=== PATIENT | male | born 2005 | race Caucasian/White ===

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

== ENCOUNTER 2024-10-15 15:53 | Emergency (ER) | payer OTHER, SELFPAY ==
--- NOTE | ~2024-10-15 | XR_ITS ---
EXAM: XR abdomen/kub 1V DATE: 10/15/2024 16:23 HISTORY: abdominal pain . COMPARISON: None available. FINDINGS: Clear lung bases. Normal bowel gas pattern. No organomegaly. No abnormal abdominal calcifi cation. Regional bones and soft tissues normal for age. IMPRESSION: Normal abdominal radiograph findings. Reviewed, dictated and finalized at location K.
--- NOTE | 2024-10-15 15:55 | ED.NAVMDI ---
HPI - Nausea/Vomiting/Diarrhea General Chief complaint: Nausea/Vomiting/Diarrhea Stated complaint: GI issues Time Seen by Provider: 10/15/24 15:54 Source: patient Mode of arrival: ambulatory Limitations: no limitations History of Present Illness HPI Narrative: Patient is a 19-year-old male who presents with 6 weeks of lower abdominal pain radiating up left side, diarrhea with intermittent constipation (diarrhea for 2-4 days in a row and then constipation for 2 weeks). Patient also having intermittent nausea and dry heaving, but has never vomited. Patient states when he tries to eat he feels like he is going to throw up and becomes full quickly. Reports his stomach always feels empty. Patient did have a grilled chicken sandwich for lunch today. Had bowel movement yesterday but states it was hard to go but not hard in consistency. Reports he is only able to go to pass stool in the morning. Stool has been green and once a dark brown but not tarry. Patient has been taking Pepto, Dulcolax, probiotics. Denies any blood in stool or vomit. Denies any fever, chills, upper respiratory infection symptoms. Does states at the start of symptoms he had a course of vomiting and flu like symptoms while in [place]. Reports eating less, increased fluids. Denies feeling bloated but states he has gained weight. Related Data Allergies Allergy/AdvReac Type Severity Reaction Status Date / Time No Known Allergies Allergy Verified 10/15/24 16:06 Review of Systems Review of Systems: All systems reviewed & are unremarkable except as noted in HPI and below Constitutional: Constitutional: Denies body ache(s), Denies chills, Denies fatigue, Denies fever(s), Denies headache(s), Denies malaise and Denies weakness Eyes: Eyes: Denies blurry vision, Denies irritation and Denies loss of vision ENT: Denies otalgia, Denies headache(s), Denies nasal discharge, Denies sinus pain and Denies sore throat Cardiovascular: Cardiovascular: Denies chest pain, Denies irregular heart rhythm and Denies dyspnea Respiratory: Respiratory: Denies dyspnea Gastrointestinal: Gastrointestinal: Reports abdominal pain, Denies melena, Denies hematochezia, Reports diarrhea, Reports nausea and Denies vomiting Musculoskeletal: Musculoskeletal: Denies back pain, Denies myalgias and Denies arthralgias Integumentary/Breasts: Skin/Breast: Denies pruritus and Denies rash Neurologic: Denies headache(s), Denies loss of vision and Denies weakness Psychiatric: Psychiatric: Reports no additional psychiatric complaints Endocrine: Endocrine: Denies fatigue PMFSH Past Medical History Medical History Medial epicondylitis of right elbow Left shoulder pain BMI 25.0-25.9,adult Overweight (BMI 25.0-29.9) Left lateral knee pain Left knee pain Constipation Abdominal pain Acute conjunctivitis of right eye BMI 26.0-26.9,adult Mild acne Mild intermittent asthma in adult without complication Attention deficit hyperactivity disorder (ADHD), combined type, moderate ADHD Asthma Family History Family History Father Neuropathy Father GERD (gastroesophageal reflux disease) Grandparent Hyperlipidemia Neuropathy Grandparent Hyperlipidemia Arthritis Grandparent Hyperlipidemia Hypertension Diabetes mellitus Neuropathy Grandparent Diabetes mellitus Hyperlipidemia Sibling Asthma ADD (attention deficit disorder) Social History Social History Smoking status: Never smoker Alcohol intake: never Substance use: never Substance use type: does not use Comments At time of signature, agree with nursing past medical, surgical, social and family history. There is no relevant family history pertinent to the presenting complaint. Exam Const: General: cooperative, healthy appearing, comfortable, no acute distress and well nourished Nutritional Appearance: well nourished Orientation/consciousness: patient oriented x3 Limitations: no limitations HENMT: Head: normal to inspection, normocephalic and atraumatic Ears: hearing grossly normal bilaterally and external ears normal Face/Nose/Sinus: Normal external nose present, normal facial exam and face symmetric Face and sinus: normal facial exam and face symmetric Mouth: Yes lip normal Eyes: General: appearance normal, both eyes and all related structures Alignment and Position: alignment normal and position normal Periorbital: periorbital findings normal Eyelids: eyelids normal Pupils: Equal, round and reactive pupils present EOM: EOMs intact bilaterally Neck: Neck: normal visual inspection, full ROM and supple Chest: Chest palpation & inspection: normal inspection of the chest Resp: Effort & Inspection: normal respiratory effort and able to speak in complete sentences Auscultation: clear to auscultation bilaterally Cardio: Rate: regular rate Rhythm: regular rhythm Heart sounds: S1 normal heart sound present and S2 normal heart sound present GI: Inspection: normal to inspection GI Palp: Yes abdominal tenderness (LLQ), Yes Soft to palpation and No Guarding due to palpation present (GI) Skin: General skin exam: normal color and no rashes or lesions noted Neuro: General: patient oriented x3 and moves all extremities Cranial nerves: Yes Equal, round and reactive pupils present Speech: normal speech Gait exam (Neuro): Normal gait present Extrem: General: normal to inspection, full ROM and no edema Psych: Appearance: grossly normal and well kempt Mental Status: mental status grossly normal Speech and movement: Normal speech and movement present Affect: normal affect Attitude: cooperative Thought process: Normal thought process present Course Course Emergency Course: Patient is aware of diagnosis, understands and agrees to treatment plan. Anticipatory guidance given. Patient agrees to follow-up as directed and is aware of reasons to seek care at the emergency department. Portions of this record may have been created with voice recognition software Level of Care: Express Care Visit Vital Signs Vital signs: Reviewed MDM - Nausea/Vomiting/Diarrhea MDM Narrative Medical decision making narrative: Discussed importance of following up with PCP for further lab work and imaging. Informed patient if there is any worsening of symptoms to go to the ER. Pt well hydrated appearing, in no respiratory distress, hemodynamically stable. Recommend supportive care. The patient is stable at time of discharge the clinical impression was discussed and the patient was given the opportunity to ask questions, which were addressed as completely as possible given the information available at present. Anticipatory guidance and return to care precautions were discussed and the importance of primary care follow-up was stressed and encouraged. The patient voiced understanding of the plan, indications to return, and the need for follow-up. Exam findings show no acute concerns or changes Patient is appropriate for outpatient treatment and follow-up. Differential Diagnosis Differential diagnosis: Likely traveler's diarrhea, food poisoning, gastroenteritis, clostridium difficile infection, drug-induced nausea and vomiting, dehydration and other (Crohn's disease, ulcerative colitis, diverticulitis) Medical Records Attestation: I reviewed the patient's medical records. Imaging Data Radiologist's impression: EXAM: XR abdomen/kub 1V DATE: 10/15/2024 16:23 HISTORY: abdominal pain . COMPARISON: None available. FINDINGS: Clear lung bases. Normal bowel gas pattern. No organomegaly. No abnormal abdominal calcification. Regional bones and soft tissues normal for age. IMPRESSION: Normal abdominal radiograph findings. Discharge Plan Discharge Clinical Impression: Abdominal pain Qualifiers: Abdominal location: left lower quadrant Qualified Code(s): R10.32 - Left lower quadrant pain Patient Disposition: Home, Self-Care Condition: Stable Instructions: Abdominal Pain (ED) Additional Instructions: Take Zofran as needed for nausea. Take Bentyl for abdominal cramping. Continue with small frequent meals and increase hydration. Follow-up with your PCP for basic labs and to schedule outpatient imaging. Please go to the emergency department immediately should you feel worse in any way or have any of the following symptoms: increasing or different abdominal pain, persistent vomiting, fevers or shaking chills, or prolonged constipation. Patient Language: Bengali Prescriptions: New dicyclomine 20 mg tablet 20 mg PO QID 7 Days Qty: 28 0RF ondansetron 4 mg tablet,disintegrating 4 mg PO Q6-8H PRN (Reason: nausea and vomiting) Qty: 7 0RF Follow-up/Referrals: Ede Leahy MD [Primary Care Provider] - 3 Days Stand Alone Forms: Work/School Release IP Time of Disposition: 16:49
[2024-10-15 16:02] VITALS: BP 133/78; PULSE 71; RESP 18; TEMP 36.6; O2SAT 100
--- OUTSIDE RECORDS SUMMARY | 2024-10-15 18:13 | XMS_ITS | Continuity of Care Document ---
Author Name [facility] Organization [facility] Care Team Providers Care Customer Resource Specialist Name Role Phone [facility] Unavailable Unavailable Immunizations Combined list of available immunizations from the Department of Defense and Veterans Affairs facilities. Immunization Series Date Given Administered By Site Reaction Lot Number CVX Code Drug Press Operator Meat Status Comments Source meningococcal oligosacchari de (MCV4O) 2020 zzLef t Arm [id number] 136 GlaxoSmithKli ne complet ed meningoco ccal oligosacc haride (MCV4O) 02/19/21 Given Ambulat ory Pharmac y Human Papillomaviru s 9-valent vaccine 2020 zzLef t Arm [id number] 165 [employer] complet ed Human Papilloma virus 9-valent vaccine 02/19/21 Given Ambulat ory Pharmac y Human Papillomaviru s 9-valent vaccine 2018 zzLef t Arm [id number] 165 [employer] complet ed Human Papilloma virus 9-valent vaccine 04/13/19 Given Ambulat ory Pharmac y Human Papillomaviru s 9-valent vaccine 2018 zzRig ht Arm [id number] 165 [employer] complet ed Human Papilloma virus 9-valent vaccine 07/27/18 Given Ambulat ory Pharmac y influenza, injectable, quadrivalent- pf 2018 zzLef t Arm [id number] 150 GlaxoSmithK[employer] complet ed influenza , injectabl e, quadrival ent-pf 07/27/18 Given Ambulat ory Pharmac y influenza, injectable, quadrivalent- pf 2016 zzLef t Arm [id number] 150 GlaxoSmith[employer] complet ed influenza , injectabl e, quadrival ent-pf 05/28/17 Given Ambulat ory Pharmac y influenza, injectable, quadrivalent 2015 zzLef t Arm [id number] 158 [employer] complet ed influenza , injectabl e, quadrival ent 04/27/16 Given Ambulat ory Pharmac y influenza, injectable, quadrivalent 2013 zzLef t Arm [id number] 158 [employer] complet ed influenza , injectabl e, quadrival ent 06/11/14 Given Ambulat ory Pharmac y tetanus, diphtheria, acellular pertu is 2013 zzRig ht Arm [id number] 115 Gl[employer]oSmith[employer] complet ed tetanus, diphtheri a, acellular pertussis 06/11/14 Given Ambulat ory Pharmac y meningococcal A,C,Y,W-135 (MCV4P) 2013 zzLef t Arm [id number] 114 sanofi pasteur complet ed meningoco ccal A,C,Y,W-1 35 (MCV4P) 06/11/14 Given Ambulat ory Pharmac y influenza, seasonal, injectable-pf 2011 zzLef t Arm [id number] 140 sanofi pasteur complet ed influenza , seasonal, injectabl e-pf 04/28/12 Given Ambulat ory Pharmac y influenza, seasonal, injectable 2010 zzLef t Arm [id number] 141 sanofi pasteur complet ed influenza , seasonal, injectabl e 05/10/11 Given Ambulat ory Pharmac y influenza virus vaccine,split 2009 zzLef t Arm [id number] 15 sanofi pasteur complet ed influenza virus vaccine,s plit 07/21/10 Given Ambulat ory Pharmac y Novel influenza-H1N 1-09,pf,injec table 2008 126 complet ed Novel influenza -A7R6-09, pf,inject able 06/12/09 Given Ambulat ory Pharmac y DTaP-poliovir us vaccine, inactivated 2008 zzLef t Thigh [id number] 130 GlaxoSmithK[employer] complet ed DTaP-cordelia ovirus vaccine, inactivat ed 01/14/09 Given Ambulat ory Pharmac y varicella virus vaccine 2008 zzLef t Thigh [id number] 21 [employer] complet ed varicella virus vaccine 01/14/09 Given Ambulat ory Pharmac y measles/mumps /rubella virus vaccine 2008 zzRig ht Thigh [id number] 03 [employer] complet ed measles/m umps/rube lla virus vaccine 01/14/09 Given Ambulat ory Pharmac y Hep A, pediatric, unspecified formul 2006 Nilay patino Thigh [id number] 31 [employer] complet ed Hep A, pediatric , unspecifi ed formul 03/03/07 Given Ambulat ory Pharmac y Hep A, pediatric, unspecified formul 2005 zCara wood Thigh [id number] 31 Gl[employer]oSmith[employer] complet ed Hep A, pediatric , unspecifi ed formul 04/15/06 Given Ambulat ory Pharmac y pneumococcal 7-valent vaccine 2004 zLeonora Thigh [id number] 100 [employer] complet ed pneumococ srini 7-valent vaccine 11/18/04 Given Ambulat ory Pharmac y DTaP 2004 zCara wood Thigh [id number] 20 Gl[employer]oSmithK[employer] complet ed DTaP 11/18/04 Given Ambulat ory Pharmac y haemophilus b conj (PRP-OMP) vaccine 2003 zHeydi t Thigh [id number] 49 [employer] complet ed haemophil us b conj (PRP-OMP) vaccine 04/29/04 Given Ambulat ory Pharmac y pneumococcal 7-valent vaccine 2003 zLeonora Thigh [id number] 100 [employer] complet ed pneumococ srini 7-valent vaccine 04/29/04 Given Ambulat ory Pharmac y tuberculin purified protein derivative 2003 zHeydi t Arm [id number] 96 sanofi pasteur complet ed Patient Tolerance : Negative Ambulat ory Pharmac y measles/mumps /rubella virus vaccine 2003 Nilay Thigh [id number] 03 [employer] complet ed measles/m umps/rube lla virus vaccine 04/29/04 Given Ambulat ory Pharmac y varicella virus vaccine 2003 zHeydiflor wood Thigh [id number] 21 [employer] complet ed varicella virus vaccine 04/29/04 Given Ambulat ory Pharmac y pneumococcal 7-valent vaccine 2003 Nilay Thigh [id number] 100 [employer] complet ed pneumococ srini 7-valent vaccine 03 Given Ambulat ory Pharmac y DTaP-hepatiti s B and poliovirus vaccine 2003 zCara t Thigh [id number] 110 GlaxoSmithKli [employer] complet ed DTaP-hepa titis B and polioviru s vaccine 03 Given Ambulat ory Pharmac y haemophilus b conj (PRP-OMP) vaccine 2003 zzLef t Thigh [id number] 49 [employer] complet ed haemophil us b conj (PRP-OMP) vaccine 03 Given Ambulat ory Pharmac y DTaP-hepatiti s B and poliovirus vaccine 2003 zzLef t Thigh [id number] 110 GlaxoSmithK[employer] complet ed DTaP-hepa titis B and polioviru s vaccine 03 Given Ambulat ory Pharmac y haemophilus b conj (PRP-OMP) vaccine 2002 zzRig ht Thigh [id number] 49 [employer] complet ed haemophil us b conj (PRP-OMP) vaccine 03 Given Ambulat ory Pharmac y pneumococcal 7-valent vaccine 2002 zzRig ht Thigh [id number] 100 [employer] complet ed pneumococ srini 7-valent vaccine 03 Given Ambulat ory Pharmac y DTaP-hepatiti s B and poliovirus vaccine 2002 zzLef t Thigh [id number] 110 GlaxoSmithKli ne complet ed DTaP-hepa titis B and polioviru s vaccine 03 Given Ambulat ory Pharmac y hepatitis B pediatric/ado lescent 2002 Transcr ibed 08 Unknown complet ed hepatitis B pediatric /adolesce nt 03 Given Ambulat ory Pharmac y Procedures Combined list of: 1) Procedures from Department of Veterans Affairs facilities going back up to thelast 18 months, not all [place] non-surgical procedures are included; 2) All procedures from the Department of Defense facilities. Procedure Procedure Type Code Date Perfomer Comments Sourc e No data available for this section Ambulatory P harmacy Assessment and Plan Combined list of future care activities from Department of Defense and Veterans Affairs facilities (e.g., assessment and plan notes, appointments, orders, and referrals). Additional future care activities may be listed in the Plan of Care section. Result Assessment and Plan Date Source Assessment and Plan No data available for this section 10/15/2024 Ambulatory Pharmacy Functional Status Combined list of recent functional and cognitive assessments recorded at Department of Defense and [place] Affairs [place] Functional [place] Measurement (FIM) Scale: 1 = Total Assistance (Subject = 0% +), 2 = Maximal Assistance (Subject = 25% +), 3 = Moderate Assistance (Subject = 50% +), 4 = Minimal Assistance (Subject = 75% +), 5 = Supervision, 6 = Modified [place] (Device), 7 = Complete [place] (Timely, Safely). Assessment Date/Time Source Assessment Type Assessment Skill Assessment Score Assessment Details No data available for this section
--- OUTSIDE RECORDS SUMMARY | 2024-10-15 18:13 | XMS_ITS | Clinical Summary ---
Author Organization [facility] Address [address] [place] [address] Care Team Providers Care Glassware Verifier Name Role Phone Zac Montalvo MD Primary Care Provider Unavailab le Source Comments [facility],non-owned Affiliates and Associated Physician Practices is amultiple site organization consisting of ambulatory clinics and hospital sitesin [place], [place], [place] and [place]. This disclosure is being madepursuant to the Care Everywhere program and may not contain all information available regarding this patient. Last updated 18.[facility] [employer] Allergies No known active allergies Medications * Be aware that medications may not be up to date on this document. Alwaysverify current medications with the patient. Medication Sig Dispensed Refills Start Date End Date Status guanFACINE (TENEX) 1 MG tablet Take 1.5 mg by mouth once daily Active guanFACINE (TENEX) 1 MG tablet Take 1 mg by mouth every afternoon Active Active Problems Problem Noted Date Diagnosed Date Right wrist injury 02/03/2016 Social History Tobacco Use Types Packs/Day Years Used Date Smoking Tobacco: Never Alcohol Use Standard Drinks/Week Comments No 0 (1 standard drink = 0.6 oz pur e alcohol) Sex and Gender Information Value Date Recorded Sex Assigned at Not on file Gender Identity Not on file Sexual Orientation Not on file Last Filed Vital Signs Vital Sign Reading Time Taken Comments Blood Pressure - - Pulse - - Temperature - - Respiratory Rate - - Oxygen Saturation - - Inhaled Oxygen Concentration - - Weight 50.5 kg (111 lb 5.3 oz) 02/03/2016 1:21 P M CDT Height 158.1 cm (5' 2.24 ) 02/03/2016 1:21 PM CD T Body Mass Index 20.2 02/03/2016 1:21 PM CDT Plan of Treatment Health Maintenance Due Date Last Done Comments HIV SCREENING 2018 HPV VACCINE (1 - Male 3-dose series) 2018 MENINGOCOCCAL (Group B) VACC INE SHARED DECISION-MAKING (1 of 2 - Standard) 2019 HEPATITIS C SCREENING 04/24/2021 DTAP/TDAP/TD VACCINES (1 - Tdap) 2022 HEPATITIS B VACCINE (1 of 3 - 19+ 3-dose series) 2022 COVID-19 VACCINE (1 - 2023-2 5 season) 2024 INFLUENZA VACCINE (#1) 2024 DEPRESSION SCREENING 07/25/2024 ZOSTER VACCINE (1 of 2) 2053 HIB VACCINE Aged Out No longer eligi ble based on patient's age to complete this topic MENINGOCOCCAL GROUPS A/C/Y/W VACCINE Aged Out No longer eligible b ased on patient's age to complete this topic PNEUMOCOCCAL VACCINE Aged Out No long er eligible based on patient's age to complete this topic Care Teams Glassware Verifier Relationship Specialty Start Date End Date Zac Montalvo MD PCP - General 03/22/11
--- OUTSIDE RECORDS SUMMARY | 2024-10-15 18:13 | XMS_ITS | Clinical Summary ---
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 Gender Identity Not on file Sexual Orientation Not on file Plan of Treatment Health Maintenance Due Date Last Done Comments Hepatitis C Virus (HCV) Screening 2003 TdaP Immunization 2003 Human Papillomavirus (HPV) Immunization (1 - Male 3-dose series) 2018 Meningococcal B Immunization (1 of 2 - Standard) 2019 Hepatitis B Immunization (1 of 3 - 19+ 3-dose series) 2022 Influenza Immunization (#1) 03/25/202404/24, 07/07/2019 SARS-COV-2 Immunization ( - season) 2024 Respiratory Syncytial Virus (RSV) Immunization (Adult) (1 - 1-dose 75+ series) 2078 Meningococcal Immunization (ACWY) Aged Out No longer eligible b ased on patient's age to complete this topic Pneumococcal Immunization Combined Aged Out No longer eligible b ased on patient's age to complete this topic Rotavirus Immunization Aged Out No lo nger eligible based on patient's age to complete this topic
--- OUTSIDE RECORDS SUMMARY | 2024-10-15 18:13 | XMS_ITS | Clinical Summary ---
Author Organization [facility] Address [address] [place] [address] Care Team Providers Care Veneer Stapler Name Role Phone Unavailable Primary Care Provider Unavailabl e Social History Tobacco Use Types Packs/Day Years Used Date Smoking Tobacco: Never Assessed Sex and Gender Information Value Date Recorded Sex Assigned at Not on file Legal Sex Male 5:48 PM CDT Gender Identity Not on file Sexual Orientation Not on file Plan of Treatment Health Maintenance Due Date Last Done Comments Annual Physical 2006 HPV Vaccines (1 - Male 3-dos e series) 2018 Meningococcal B Vaccine (1 o f 2 - Standard) 2019 Hepatitis C 2021 DTaP, Tdap and Td Vaccines ( 1 - Tdap) 2022 Hepatitis B Vaccines (1 of 3 - 19+ 3-dose series) 2022 COVID-19 Vaccine (1 - 2023-2 5 season) 2024 Influenza Adult (#1) 2024 Meningococcal Vaccine Aged Out No adalid dariana eligible based on patient's age to complete this topic Pneumococcal Vaccine: Pediat rics (0 to 5 Years) and At-Risk Patients (6 to 64 Years) Aged Out No longer eligible b ased on patient's age to complete this topic RSV Immunizations Under 20 Months Aged Out No longer eligible based on patient's age to complete this topic
--- OUTSIDE RECORDS SUMMARY | 2024-10-15 18:19 | XMS_ITS | Continuity of Care Document ---
Author Name [facility] Organization [facility] Care Team Providers Care Impact Retail Service Merchandiser Name Role Phone [facility] Unavailable Unavailable Immunizations Combined list of available immunizations from the Department of Defense and Veterans Affairs facilities. Immunization Series Date Given Administered By Site Reaction Lot Number CVX Code Drug Laboratory Tech Status Comments Source meningococcal oligosacchari de (MCV4O) 2020 zzLef t Arm [id number] 136 GlaxoSmithKli ne complet ed meningoco ccal oligosacc haride (MCV4O) 02/19/21 Given Ambulat ory Pharmac y Human Papillomaviru s 9-valent vaccine 2020 zzLef t Arm [id number] 165 Merck & Company Inc complet ed Human Papilloma virus 9-valent vaccine 02/19/21 Given Ambulat ory Pharmac y Human Papillomaviru s 9-valent vaccine 2018 zzLef t Arm [id number] 165 Merck [employer] Company Inc complet ed Human Papilloma virus 9-valent vaccine 04/13/19 Given Ambulat ory Pharmac y Human Papillomaviru s 9-valent vaccine 2018 zzRig ht Arm [id number] 165 Merck & Company Inc complet ed [...] meningococcal A,C,Y,W-135 (MCV4P) 2013 zzLef t Arm [id number] 114 sanofi pasteur complet ed meningoco ccal A,C,Y,W-1 35 (MCV4P) 06/11/14 Given Ambulat ory Pharmac y influenza, seasonal, injectable-pf 2011 zzLef t Arm [id number] 140 sanofi pasteur complet ed influenza , seasonal, injectabl e-pf 04/28/12 Given Ambulat ory Pharmac y influenza, seasonal, injectable 2010 zzLef t Arm [id number] 141 sanofi pasteur complet ed influenza , seasonal, injectabl e 05/10/11 Given Ambulat ory Pharmac y influenza virus vaccine,split 2009 zzLef t Arm [id number] 15 sanofi pasteur complet ed influenza virus vaccine,s plit 07/21/10 Given Ambulat ory Pharmac y Novel influenza-H1N 1-09,pf,injec table 2008 126 complet ed Novel influenza -I1P3-61, pf,inject able 06/12/09 Given Ambulat ory Pharmac y DTaP-poliovir us vaccine, inactivated 2008 zzLef t Thigh [id number] 130 GlaxoSmithKli ne complet ed DTaP-cordelia [...] y pneumococcal 7-valent vaccine 2004 zLeonora Thigh [id number] 100 [employer] [facility] complet ed pneumococ srini 7-valent vaccine 11/18/04 Given Ambulat ory Pharmac y DTaP 2004 zCara wood Thigh [id number] 20 GlaxoSmithKli ne complet ed DTaP 11/18/04 Given Ambulat ory Pharmac y haemophilus b conj (PRP-OMP) vaccine 2003 zHeydi t Thigh [id number] 49 Merck & Company Inc complet ed haemophil us b conj (PRP-OMP) vaccine 04/29/04 Given Ambulat ory Pharmac y pneumococcal 7-valent vaccine 2003 zLeonora Thigh [id number] 100 [employer] complet ed pneumococ srini 7-valent vaccine 04/29/04 Given Ambulat ory Pharmac y tuberculin purified protein derivative 2003 zHeydi t Arm [id number] 96 sanofi pasteur complet ed Patient Tolerance [...] 7-valent vaccine 2003 Nilay Thigh [phone] [employer] complet ed pneumococ srini 7-valent vaccine 03 Given Ambulat ory Pharmac y DTaP-hepatiti s B and poliovirus vaccine 2003 zCara t Thigh [id number] 110 GlaxoSmithKli ne complet ed DTaP-hepa titis B and polioviru s vaccine 03 Given Ambulat ory Pharmac y haemophilus b conj (PRP-OMP) vaccine 2003 zzLef t Thigh [id number] 49 Merck & Company Inc complet ed haemophil us b conj (PRP-OMP) vaccine 03 Given Ambulat ory Pharmac y DTaP-hepatiti s B and poliovirus vaccine 2003 zzLef t Thigh [id number] 110 GlaxoSmithKli ne complet ed DTaP-hepa titis B and polioviru s vaccine 03 Given Ambulat ory Pharmac y haemophilus b conj (PRP-OMP) vaccine 2002 zzRig ht Thigh [id number] 49 Merck & Company Inc complet ed haemophil us b conj (PRP-OMP) vaccine 03 Given Ambulat ory Pharmac y pneumococcal 7-valent vaccine 2002 zzRig ht Thigh [phone] [employer] complet ed pneumococ srini 7-valent vaccine 03 Given Ambulat ory Pharmac y DTaP-hepatiti s B and poliovirus vaccine 2002 zzLef t Thigh [id number] 110 GlaxoSmithKli ne complet ed DTaP-hepa titis B and polioviru s vaccine 03 Given Ambulat ory Pharmac y hepatitis B pediatric/ado lescent 2002 Transcr ibed 08 Unknown complet ed hepatitis B pediatric /adolesce nt 03 Given Ambulat ory Pharmac y Procedures Combined list of: 1) Procedures from Department of Veterans Affairs facilities going back up to thelast 18 months, not all [place] non-surgical procedures are included; 2) All procedures [...] at Department of Defense and [facility] Affairs ([place]VA Functional [place] Measurement (FIM) Scale: 1 = Total Assistance (Subject = 0% +), 2 = Maximal Assistance (Subject = 25% +), 3 = Moderate Assistance (Subject = 50% +), 4 = Minimal Assistance (Subject = 75% +), 5 = Supervision, 6 = Modified [place] (Device), 7 = Complete [place] (Timely, Safely). Assessment Date/Time Source Assessment Type Assessment Skill Assessment Score Assessment Details No data available for this section
== END 2024-10-15 16:52 | disposition home or self-care (01) ==
PROVIDERS: Emergency Provider Nurse Practitioner Family; PCP Family Medicine
DX: R10.32 Left lower quadrant pain (principal); J45.909 Unspecified asthma, uncomplicated
CPT/HCPCS: 74018; 99213; G0463

== ENCOUNTER 2024-10-15 22:28 | Emergency (ER) | payer OTHER, SELFPAY ==
--- NOTE | ~2024-10-15 | CT_ITS ---
EXAMINATION: CT abdomen pelvis w con DATE: 10/16/2024 01:02 INDICATION: Low abdominal pain. TECHNIQUE: Computed tomography (CT) of the abdomen and pelvis was performed with 100 mL Omnipaque 350 intravenous contrast. Automated exposure control and iterative reconstruction technique were employe d. The dose-length product was 622.22 mGy-cm. COMPARISON: None. FINDINGS: The visualized portions of the lung bases are clear without pneumonia or pleural effusion. The heart size is normal. No pericardial effusion. The liver is normal. The gallbladder is contracted . Calcifications in the spleen are consistent with old granulomatous disease. The pancreas, adrenal g lands, and kidneys are normal. There are no dilated loops of bowel. There is wall thickening of the d escending and sigmoid colon. The appendix is normal. There are no pathologically enlarged lymph nodes . There is no free intraperitoneal fluid. There is mild lumbar spondylosis. IMPRESSION: 1. Wall thickening of the descending and sigmoid colon, which may be secondary to nondistention or co litis. Reviewed, dictated and finalized at location A. IMPRESSION: 1. Wall thickening of the descending and sigmoid colon, which may be secondary to nondistention or colitis.
[2024-10-15 22:29] VITALS: BP 150/93; PULSE 102; RESP 16; TEMP 36.6; O2SAT 100
--- OUTSIDE RECORDS SUMMARY | 2024-10-15 22:30 | XMS_ITS | Clinical Summary ---
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
--- OUTSIDE RECORDS SUMMARY | 2024-10-15 22:30 | XMS_ITS | Continuity of Care Document ---
Author Name [facility] Organization [facility] Care Team Providers Care Oracle Etl Developer Name Role Phone [facility] Unavailable Unavailable Immunizations Combined list of available immunizations from the Department of Defense and Veterans Affairs facilities. Immunization Series Date Given Administered By Site Reaction Lot Number CVX Code Drug Angle Shear Set Up Operator Status Comments Source meningococcal oligosacchari de (MCV4O) 2020 zzLef t Arm [id number] 136 GlaxoSmithKli ne complet ed meningoco ccal oligosacc haride (MCV4O) 02/19/21 Given Ambulat ory Pharmac y Human Papillomaviru s 9-valent vaccine 2020 zzLef t Arm [id number] 165 Merck & Company Inc complet ed Human Papilloma virus 9-valent vaccine 02/19/21 Given Ambulat ory Pharmac y Human Papillomaviru s 9-valent vaccine 2018 zzLef t Arm [id number] 165 Merck & Company Inc complet ed Human Papilloma virus 9-valent vaccine 04/13/19 Given Ambulat ory Pharmac y Human Papillomaviru s 9-valent vaccine 2018 zzRig ht Arm [id number] 165 Merck & Company Inc complet ed [...] meningococcal A,C,Y,W-135 (MCV4P) 2013 zzLef t Arm [id number] 114 sanofi pasteur complet ed meningoco ccal A,C,Y,W-1 35 (MCV4P) 06/11/14 Given Ambulat ory Pharmac y influenza, seasonal, injectable-pf 2011 zzLef t Arm [id number] 140 sanofi pasteur complet ed influenza , seasonal, injectabl e-pf 04/28/12 Given Ambulat ory Pharmac y influenza, seasonal, injectable 2010 zzLef t Arm [id number] 141 sanofi pasteur complet ed influenza , seasonal, injectabl e 05/10/11 Given Ambulat ory Pharmac y influenza virus vaccine,split 2009 zzLef t Arm [id number] 15 sanofi pasteur complet ed influenza virus vaccine,s plit 07/21/10 Given Ambulat ory Pharmac y Novel influenza-H1N 1-09,pf,injec table 2008 126 complet ed Novel influenza -F3E4-29, pf,inject able 06/12/09 Given Ambulat ory Pharmac y DTaP-poliovir us vaccine, inactivated 2008 zzLef t Thigh [id number] 130 GlaxoSmithKli ne complet ed DTaP-cordelia [...] y pneumococcal 7-valent vaccine 2004 zLeonora Thigh [id number] 100 [facility] complet ed pneumococ srini 7-valent vaccine 11/18/04 Given Ambulat ory Pharmac y DTaP 2004 zCara wood Thigh [id number] 0BA 20 GlaxoSmithKli ne complet ed DTaP 11/18/04 Given Ambulat ory Pharmac y haemophilus b conj (PRP-OMP) vaccine 2003 zHeydi t Thigh [id number] 49 Merck & Company Inc complet ed haemophil us b conj (PRP-OMP) vaccine 04/29/04 Given Ambulat ory Pharmac y pneumococcal 7-valent vaccine 2003 zLeonora Thigh [id number] 100 [facility] complet ed pneumococ srini 7-valent vaccine 04/29/04 Given Ambulat ory Pharmac y tuberculin purified protein derivative 2003 zHeydi t Arm [id number] 96 sanofi pasteur complet ed Patient Tolerance [...] 7-valent vaccine 2003 Nilay Thigh [phone] [facility] complet ed pneumococ srini 7-valent vaccine 03 Given Ambulat ory Pharmac y DTaP-hepatiti s B and poliovirus vaccine 2003 zCara t Thigh [id number] 110 GlaxoSmithKli ne complet ed DTaP-hepa titis B and polioviru s vaccine 03 Given Ambulat ory Pharmac y haemophilus b conj (PRP-OMP) vaccine 2003 zzLef t Thigh [id number] 49 Merck & Company Inc complet ed haemophil us b conj (PRP-OMP) vaccine 03 Given Ambulat ory Pharmac y DTaP-hepatiti s B and poliovirus vaccine 2003 zzLef t Thigh [id number] 110 GlaxoSmithKli ne complet ed DTaP-hepa titis B and polioviru s vaccine 03 Given Ambulat ory Pharmac y haemophilus b conj (PRP-OMP) vaccine 2002 zzRig ht Thigh [id number] 49 Merck & Company Inc complet ed haemophil us b conj (PRP-OMP) vaccine 03 Given Ambulat ory Pharmac y pneumococcal 7-valent vaccine 2002 zzRig ht Thigh [phone] [employer] complet ed pneumococ srini 7-valent vaccine 03 Given Ambulat ory Pharmac y DTaP-hepatiti s B and poliovirus vaccine 2002 zzLef t Thigh [id number] 110 GlaxoSmithKli ne complet ed DTaP-hepa titis B and polioviru s vaccine 03 Given Ambulat ory Pharmac y hepatitis B pediatric/ado lescent 2002 Transcr ibed 08 Unknown complet ed hepatitis B pediatric /adolesce nt 03 Given Ambulat ory Pharmac y Procedures Combined list of: 1) Procedures from Department of Veterans Affairs facilities going back up to thelast 18 months, not all [place] non-surgical procedures are included; 2) All procedures [...] Plan No data available for this section 10/16/2024 Ambulatory Pharmacy Functional Status Combined list of recent functional and cognitive assessments recorded at Department of Defense and [facility] Affairs ([place]VA Functional [place] Measurement (FIM) Scale: 1 = Total Assistance (Subject = 0% +), 2 = Maximal Assistance (Subject = 25% +), 3 = Moderate Assistance (Subject = 50% +), 4 = Minimal Assistance (Subject = 75% +), 5 = Supervision, 6 = Modified [place] (Device), 7 = Complete [place] (Timely, Safely). Assessment Date/Time Source Assessment Type Assessment Skill Assessment Score Assessment Details No data available for this section
--- OUTSIDE RECORDS SUMMARY | 2024-10-15 22:30 | XMS_ITS | Clinical Summary ---
Author Organization [facility] Address [address] [place] [address] Care Team Providers Care Spanish Translator Name Role Phone Unavailable Primary Care Provider [...]
--- OUTSIDE RECORDS SUMMARY | 2024-10-15 22:30 | XMS_ITS | Clinical Summary ---
Author Organization [facility] Address [address] [place] [address] Care Team Providers Care Mechanical System Technician Name Role Phone Zac Montalvo MD Primary Care Provider Unavailab le Source Comments [facility],non-owned Affiliates and Associated Physician Practices is amultiple site organization consisting of ambulatory clinics and hospital sitesin [place], [place], [place] and [place]. This disclosure is being madepursuant to the Care Everywhere program and may not contain all information available regarding this patient. Last updated 18.[facility] [employer] Allergies No known active allergies Medications * [...] age to complete this topic Care Teams Mechanical System Technician Relationship Specialty Start Date End Date Zac Montalvo MD PCP - General 03/22/11
[2024-10-16] MEDS: SODIUM CHLORIDE 0.9% IV 1,000 ML 999 ML IV CONT (00:02)
--- OUTSIDE RECORDS SUMMARY | 2024-10-16 00:05 | XMS_ITS | Clinical Summary ---
Author Organization [facility] Address [address] [place] [address] Care Team Providers Care Mess Cook Name Role Phone Unavailable Primary Care Provider [...]
--- OUTSIDE RECORDS SUMMARY | 2024-10-16 00:05 | XMS_ITS | Continuity of Care Document ---
Author Name [facility] Organization [facility] Care Team Providers Care Gauge Checker Name Role Phone [facility] Unavailable Unavailable Immunizations Combined list of available immunizations from the Department of Defense and Veterans Affairs facilities. Immunization Series Date Given Administered By Site Reaction Lot Number CVX Code Drug Smooth Plater Status Comments Source meningococcal oligosacchari de (MCV4O) 2020 zzLef t Arm [id number] 136 GlaxoSmithKli ne complet ed meningoco ccal oligosacc haride (MCV4O) 02/19/21 Given Ambulat ory Pharmac y Human Papillomaviru s 9-valent vaccine 2020 zzLef t Arm [id number] 165 Merck & Company Inc complet ed Human Papilloma virus 9-valent vaccine 02/19/21 Given Ambulat ory Pharmac y Human Papillomaviru s 9-valent vaccine 2018 zzLef t Arm [id number] 165 Merck & Company Inc complet ed Human Papilloma virus 9-valent vaccine 04/13/19 Given Ambulat ory Pharmac y Human Papillomaviru s 9-valent vaccine 2018 zzRig ht Arm [id number] 165 Merck & Company Inc complet ed [...] meningococcal A,C,Y,W-135 (MCV4P) 2013 zzLef t Arm [id number] 114 sanofi pasteur complet ed meningoco ccal A,C,Y,W-1 35 (MCV4P) 06/11/14 Given Ambulat ory Pharmac y influenza, seasonal, injectable-pf 2011 zzLef t Arm [id number] 140 sanofi pasteur complet ed influenza , seasonal, injectabl e-pf 04/28/12 Given Ambulat ory Pharmac y influenza, seasonal, injectable 2010 zzLef t Arm [id number] 141 sanofi pasteur complet ed influenza , seasonal, injectabl e 05/10/11 Given Ambulat ory Pharmac y influenza virus vaccine,split 2009 zzLef t Arm [id number] 15 sanofi pasteur complet ed influenza virus vaccine,s plit 07/21/10 Given Ambulat ory Pharmac y Novel influenza-H1N 1-09,pf,injec table 2008 126 complet ed Novel influenza -Z1D1-38, pf,inject able 06/12/09 Given Ambulat ory Pharmac y DTaP-poliovir us vaccine, inactivated 2008 zzLef t Thigh [id number] 130 GlaxoSmithKli ne complet ed DTaP-cordelia [...] y pneumococcal 7-valent vaccine 2004 zLeonora Thigh [id number] 100 [employer] [facility] complet ed pneumococ srini 7-valent vaccine 11/18/04 Given Ambulat ory Pharmac y DTaP 2004 zCara wood Thigh [id number] 20 GlaxoSmithKli ne complet ed DTaP 11/18/04 Given Ambulat ory Pharmac y haemophilus b conj (PRP-OMP) vaccine 2003 zHeydi t Thigh [id number] 49 Merck & Company Inc complet ed haemophil us b conj (PRP-OMP) vaccine 04/29/04 Given Ambulat ory Pharmac y pneumococcal 7-valent vaccine 2003 zLeonora Thigh [id number] 100 [facility] complet ed pneumococ srini 7-valent vaccine 04/29/04 Given Ambulat ory Pharmac y tuberculin purified protein derivative 2003 zHeydi t Arm [id number] 96 sanofi pasteur complet ed Patient Tolerance [...] 7-valent vaccine 2003 Nilay Thigh [phone] [facility] complet ed pneumococ srini 7-valent vaccine 03 Given Ambulat ory Pharmac y DTaP-hepatiti s B and poliovirus vaccine 2003 zCara t Thigh [id number] 110 GlaxoSmithKli ne complet ed DTaP-hepa titis B and polioviru s vaccine 03 Given Ambulat ory Pharmac y haemophilus b conj (PRP-OMP) vaccine 2003 zzLef t Thigh [id number] 49 Merck & [employer] Inc complet ed haemophil us b conj (PRP-OMP) vaccine 03 Given Ambulat ory Pharmac y DTaP-hepatiti s B and poliovirus vaccine 2003 zzLef t Thigh [id number] 110 GlaxoSmithKli ne complet ed DTaP-hepa titis B and polioviru s vaccine 03 Given Ambulat ory Pharmac y haemophilus b conj (PRP-OMP) vaccine 2002 zzRig ht Thigh [id number] 49 Merck & Company Inc complet ed haemophil us b conj (PRP-OMP) vaccine 03 Given Ambulat ory Pharmac y pneumococcal 7-valent vaccine 2002 zzRig ht Thigh [phone] [employer] complet ed pneumococ srini 7-valent vaccine 03 Given Ambulat ory Pharmac y DTaP-hepatiti s B and poliovirus vaccine 2002 zzLef t Thigh [id number] 110 GlaxoSmithKli ne complet ed DTaP-hepa titis B and polioviru s vaccine 03 Given Ambulat ory Pharmac y hepatitis B pediatric/ado lescent 2002 Transcr ibed 08 Unknown complet ed hepatitis B pediatric /adolesce nt 03 Given Ambulat ory Pharmac y Procedures Combined list of: 1) Procedures from Department of Veterans Affairs facilities going back up to thelast 18 months, not all [place] non-surgical procedures are included; 2) All procedures [...] at [facility] ([place]VA Functional [place] Measurement (FIM) Scale: 1 = Total Assistance (Subject = 0% +), 2 = Maximal Assistance (Subject = 25% +), 3 = Moderate Assistance (Subject = 50% +), 4 = Minimal Assistance (Subject = 75% +), 5 = Supervision, 6 = Modified [place] (Device), 7 = Complete [place] (Timely, Safely). Assessment Date/Time Source Assessment Type Assessment Skill Assessment Score Assessment Details No data available for this section
--- OUTSIDE RECORDS SUMMARY | 2024-10-16 00:05 | XMS_ITS | Clinical Summary ---
Author Organization 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
--- OUTSIDE RECORDS SUMMARY | 2024-10-16 00:05 | XMS_ITS | Clinical Summary ---
Author Organization [facility] Address [address] [place] [address] Care Team Providers Care Paper Twister Name Role Phone Zac Montalvo MD Primary Care Provider Unavailab le Source Comments [facility],non-owned Affiliates and Associated Physician Practices is amultiple site organization consisting of ambulatory clinics and hospital sitesin [place], [place], [place] and [place]. This disclosure is being madepursuant to the Care Everywhere program and may not contain all information available regarding this patient. Last updated 18.[facility] [employer] Allergies No known active allergies Medications * [...] age to complete this topic Care Teams Paper Twister Relationship Specialty Start Date End Date Zac Montalvo MD PCP - General 03/22/11
[2024-10-16 00:17] LABS: Add Urine Microscopic? NO; Appearance Urine Clear (Clear); Bilirubin Urine Negative (Negative); Blood Urine Negative (Negative); Color Urine Yellow (Yellow); Glucose Urine UA Negative (Negative); Ketones Urine Negative (Negative); Leukocyte Esterase Ur Negative LEU/UL (Negative); Nitrate Urine Negative (Negative); Protein Urine Negative (Negative); Specific Grav Ur 1.024 (1.001-1.035); pH Urine 5.5 (5.0-9.0)
[2024-10-16 00:29] LABS: Alanine Aminotransferase 43 U/L (6-50); Albumin Level 4.8 g/dL (3.5-5.1); Alkaline Phosphatase 80 U/L (38-126); Anion Gap 12 mmol/L (4-12); Aspartate Amino Transferase 38 U/L (17-59); Bilirubin,Total 0.8 mg/dL (0.2-1.3); Blood Urea Nitrogen 20 mg/dL (9-20); Calcium 9.6 mg/dL (8.4-10.2); Carbon Dioxide 27 mmol/L (22-30); Chloride 100 mmol/L (98-107); Estimated Glomerular Filt Rate > 60; Glucose 105 mg/dL (65-110); Lipase 61 U/L (23-300); Sodium 139 mmol/L (137-145)
--- NOTE | 2024-10-16 00:45 | ED_ITS ---
HPI - Abdominal Pain General Chief Complaint: Abdominal Pain Stated Complaint: abd pain Time Seen by Provider: 10/15/24 23:24 History of Present Illness HPI narrative: Patient is a 19-year-old male who presents ER with lower abdominal pain. Ongoing for 6 weeks. Waves of pain. Occasional constipation and occasional diarrhea. Has had diarrhea today and right before he came in. Seen at urgent care earlier and had x-ray that was unremarkable of the abdomen. No fevers or chills or sweats. Has not seen his PCP. He did take dicyclomine prior to coming in without improvement. Related Data Allergies Allergy/AdvReac Type Severity Reaction Status Date / Time No Known Allergies Allergy Verified 10/15/24 16:06 Review of Systems 2 Review of Systems: All systems reviewed & are unremarkable except as noted in HPI and below Constitutional: Constitutional: Reports no additional constitutional complaints ENT: Reports system reviewed and no additional complaints, except as documented Cardiovascular: Cardiovascular: Reports no additional cardiovascular complaints Respiratory: Respiratory: Reports no additional respiratory complaints Gastrointestinal: Gastrointestinal: Reports no additional gastrointestinal complaints PMFSH Past Medical History Medical History Medial epicondylitis of right elbow Left shoulder pain BMI 25.0-25.9,adult Overweight (BMI 25.0-29.9) Left lateral knee pain Left knee pain Constipation Abdominal pain Acute conjunctivitis of right eye BMI 26.0-26.9,adult Mild acne Mild intermittent asthma in adult without complication Attention deficit hyperactivity disorder (ADHD), combined type, moderate ADHD Asthma Family History Family History Father Neuropathy Father GERD (gastroesophageal reflux disease) Grandparent Hyperlipidemia Neuropathy Grandparent Hyperlipidemia Arthritis Grandparent Hyperlipidemia Hypertension Diabetes mellitus Neuropathy Grandparent Diabetes mellitus Hyperlipidemia Sibling Asthma ADD (attention deficit disorder) Social History Social History Smoking status: Never smoker Alcohol intake: never Substance use: never Substance use type: does not use Exam 2 Narrative: GENERAL: Well-appearing, well-nourished, and in no acute distress. HEAD: Normocephalic, atraumatic. ENT: Mucous membranes moist. CHEST: Clear to auscultation. No respiratory distress. HEART: Regular rate and rhythm. Normal peripheral pulses. ABDOMEN: Soft, nontender, nondistended. EXTREMITIES: Normal range of motion. No edema. SKIN: Warm, dry, no rash. NEURO: Alert and oriented x3. PSYCH: Normal mood and affect. Course Course Emergency Course: Discussed dx and tx plan. Infectious vs inflammatory, recommend GI f/u as well as PCP. Will place on cipor/flagyl. Vital Signs Vital signs: Vital Signs Temperature 97.9 F 10/15/24 22:29 Pulse Rate 102 H 10/15/24 22:29 Respiratory Rate 16 10/15/24 22:29 Blood Pressure 150/93 H 10/15/24 22:29 Pulse Oximetry 100 10/15/24 22:29 Oxygen Delivery Room Air 10/15/24 22:29 Temperature 97.9 F 10/15/24 22:29 Pulse Rate 102 H 10/15/24 22:29 Respiratory Rate 16 10/15/24 22:29 Blood Pressure 150/93 H 10/15/24 22:29 Pulse Oximetry 100 10/15/24 22:29 Oxygen Delivery Room Air 10/15/24 22:29 MDM - Abdominal Pain Lab Data 10/16/24 00:03 10/16/24 00:03 Labs: Lab Results 10/16/24 Range/Units 00:03 WBC 9.1 (4.5-10.0) K/mm3 RBC 4.78 (4.6-6.20) M/mm3 Hgb 14.5 (14.0-18.0) g/dL Hct 41.4 L (42.0-52.0) % MCV 86.6 (80-100) fl MCH 30.3 (26-34) pg MCHC 35.0 (32-36) g/dl RDW 11.9 (11.5-14.5) % Plt Count 286 (150-375) k/mm3 MPV 9.3 (7.4-10.4) fl Immature Gran % (Auto) 1.3 H (0-0.5) % Neut % (Auto) 63.7 (45.5-73.1) % Lymph % (Auto) 25.4 (18.3-44.2) % [place] % (Auto) 7.5 (2.6-8.5) % Eos % (Auto) 1.6 (0-4.4) % Baso % (Auto) 0.5 (0.2-1.2) % Lymph # (Auto) 2.31 (0.9-3.2) K/mm3 [place] # (Auto) 0.7 H (0.1-0.6) K/mm3 Eos # (Auto) 0.2 (0-0.3) K/mm3 Baso # (Auto) 0.1 (0.0-0.1) K/mm3 Abs Immat Gran (auto) 0.12 H (0.00-0.031) K/mm3 Absolute Neuts (auto) 5.8 (1.3-6.7) K/mm3 Absolute Nucleated RBC 0.000 (0.0-0.012) K/mm3 Nucleated RBC % 0.0 (0.0-0.2) % Sodium 139 (137-145) mmol/L Potassium 4.0 (3.4-5.0) mmol/L Chloride 100 (98-107) mmol/L Carbon Dioxide 27 (22-30) mmol/L Anion Gap 12 (4-12) mmol/L BUN 20 (9-20) mg/dL Creatinine 0.91 (0.7-1.3) mg/dL Estim Creat Clear Calc Not Reportable Estimated GFR > 60 (59 - ) Glucose 105 (65-110) mg/dL Calcium 9.6 (8.4-10.2) mg/dL Total Bilirubin 0.8 (0.2-1.3) mg/dL AST 38 (17-59) U/L ALT 43 (6-50) U/L Alkaline Phosphatase 80 (38-126) U/L Total Protein 9.0 H (6.3-8.2) g/dL Albumin 4.8 (3.5-5.1) g/dL Lipase 61 (23-300) U/L Urine Color Yellow (Yellow) Urine Appearance Clear (Clear) Urine pH 5.5 (5.0-9.0) Ur Specific [place] 1.024 (1.001-1.035) Urine Protein Negative (Negative) mg/dL Urine Glucose (UA) Negative (Negative) mg/dL Urine Ketones Negative (Negative) mg/dL Ur Blood (Man) Negative (Negative) Urine Nitrate Negative (Negative) Urine Bilirubin Negative (Negative) Urine Urobilinogen 1.0 (<2.0) mg/dL Leukocyte Esterase Rfl Negative (Negative) [place]/UL Imaging Data Radiologist's impression: CT Abd/Pelvis: Colitis affecting the descending and sigmoid colon. Discharge Plan Discharge Clinical Impression: Colitis Patient Disposition: Home, Self-Care Condition: Stable Instructions: Antibiotic Form, Colitis (ED) Additional Instructions: Please drink plenty of fluids at home. Return to the emergency department if you develop high fevers, have persistent severe abdominal pain, or have bloody stools or vomit, as these could be signs of a more serious medical emergency. Return to the emergency department if you are unable to keep down liquids because of severe nausea/vomiting. Patient Language: Kisw[place]ili Prescriptions: New ciprofloxacin HCl [Cipro] 500 mg tablet 500 mg PO Q12H Qty: 14 0RF metronidazole 500 mg tablet 500 mg PO Q8H Qty: 21 0RF No Action dicyclomine 20 mg tablet 20 mg PO QID 7 Days Qty: 28 0RF ondansetron 4 mg tablet,disintegrating 4 mg PO Q6-8H PRN (Reason: nausea and vomiting) Qty: 7 0RF Follow-up/Referrals: Ede Leahy MD [Primary Care Provider] - 1 Week Apolinar Ba MD [Physician] - 1 Week
[2024-10-16 00:48] LABS: Basophils Absolute Auto 0.1 K/mm3 (0.0-0.1); Basophils Percent Auto 0.5 % (0.2-1.2); Eosinophils Absolute Auto 0.2 K/mm3 (0-0.3); Eosinophils Percent Auto 1.6 % (0-4.4); Hematocrit 41.4 % (42.0-52.0); Hemoglobin 14.5 g/dL (14.0-18.0); Immature Granulocyte Absolute 0.12 K/mm3 (0.00-0.031); Immature Granulocyte Percent A 1.3 % (0-0.5); Lymphocytes Absolute Auto 2.31 K/mm3 (0.9-3.2); Lymphocytes Percent Auto 25.4 % (18.3-44.2); Mean Corpuscular Hemoglobin 30.3 pg (26-34); Mean Corpuscular Volume 86.6 fl (80-100); Mean Platelet Volume 9.3 fl (7.4-10.4); Monocytes Absolute Auto 0.7 K/mm3 (0.1-0.6); Monocytes Percent Auto 7.5 % (2.6-8.5); Neutrophils Absolute Auto 5.8 K/mm3 (1.3-6.7); Neutrophils Percent Auto 63.7 % (45.5-73.1); Platelet Count Result 286 k/mm3 (150-375); Red Blood Count 4.78 M/mm3 (4.6-6.20); Red Cell Distribution Width 11.9 % (11.5-14.5); White Blood Count 9.1 K/mm3 (4.5-10.0)
[2024-10-16 04:06] VITALS: BP 124/58; PULSE 81; RESP 16; O2SAT 99
== END 2024-10-16 04:07 | disposition home or self-care (01) ==
PROVIDERS: Emergency Provider Emergency Medicine; PCP Family Medicine
DX: R10.32 Left lower quadrant pain (principal); F90.2 Attention-deficit hyperactivity disorder, combined type; J45.909 Unspecified asthma, uncomplicated
CPT/HCPCS: 36415; 74177; 80053; 81003; 83690; 85025; 96360; 99284; J7030; Q9967

== ENCOUNTER 2024-11-19 17:02 | Outpatient (CLI) | payer OTHER, SELFPAY ==
--- OUTSIDE RECORDS SUMMARY | 2024-11-19 18:30 | XMS_ITS | Clinical Summary ---
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
--- OUTSIDE RECORDS SUMMARY | 2024-11-19 18:30 | XMS_ITS | Clinical Summary ---
Author Organization [facility] Address [address] [place] [address] Care Team Providers Care Aviation Technician Name Role Phone Zac Montalvo MD Primary Care Provider Unavailab le Source Comments [facility],non-owned Affiliates and Associated Physician Practices is amultiple site organization consisting of ambulatory clinics and hospital sitesin [place], [place], [place] and [place]. This disclosure is being madepursuant to the Care Everywhere program and may not contain all information available regarding this patient. Last updated 18.[facility] [employer] Allergies No known active allergies Medications * Be aware that medications may not be up to date on this document. Alwaysverify current medications with the patient. 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 Gender Identity Not on file Sexual Orientation [...] VACCINE (1 - 2023-2 5 season) 2024 DEPRESSION SCREENING 07/25/2024 INFLUENZA VACCINE (Season Ended) 2025 ZOSTER VACCINE (1 of 2) 2053 HIB VACCINE Aged Out No longer eligi ble based on patient's age to complete this topic MENINGOCOCCAL GROUPS A/C/Y/W VACCINE Aged Out No longer eligible b ased on patient's age to complete this topic PNEUMOCOCCAL VACCINE Aged Out No long er eligible based on patient's age to complete this topic Insurance Care Teams Aviation Technician Relationship Specialty Start Date End Date Zac Montalvo MD PCP - General 03/22/11
--- OUTSIDE RECORDS SUMMARY | 2024-11-19 18:30 | XMS_ITS | Clinical Summary ---
Author Organization [facility] Address [address] [place] [address] Care Team Providers Care Bagel Maker Name Role Phone Unavailable Primary Care Provider [...] Vaccine (1 - 2023-2 5 season) 2024 Meningococcal Vaccine Aged Out No adalid dariana eligible based on patient's age to complete this topic Pneumococcal Vaccine: Pediat rics (0 to 5 Years) and At-Risk Patients (6 to 49 Years) Aged Out No longer eligible b ased on patient's age to complete this topic RSV Immunizations Under 20 Months Aged Out No longer eligible based on patient's age to complete this topic
--- OUTSIDE RECORDS SUMMARY | 2024-11-19 18:30 | XMS_ITS | Continuity of Care Document ---
Author Name [facility] Organization [facility] Care Team Providers Care Foam Charger Name Role Phone [facility] Unavailable Unavailable Problems Combined list of problems from Department of Defense and Veterans Affairs facilities. It does not include entries that were removed or entered in error. Problem Status Onset Date Problem Type Date of Resolution Comments Source Parent Counseling Inactive Condition DoD Removal Of Sutures Inactive Condition Do D Blood Pressure Isolated Elevated Active Condition DoD visit for: examination Inactive Condition DoD Parent Education: Active Condition DoD Inquiry And Counseling: Parent - Child Problem Inactive Condition DoD ASTHMA Active Condition DoD visit for: refer patient without exam or treatment Active Condition [facility] visit for: screening exam cardiovascular disorders Active Condition DoD Demonstrated Behavior Violent Active Condition [facility] visit for: administrative purpose Inactive Condition 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 [facility] Vaccines Prophylactic Need Against Combinations Of Diseases Inactive Condition Discussed risks, benefits, alternatives. Side effects include but are not limited to pain, redness, swelling, hardness of site, decreased/incre ased appetite. Return sooner to clinic (normal hours)/ ER (after hours) for anything more significant. [facility] Established Patient Age 1-4 School / Camp Physical Inactive Condition DoD UPPER RESPIRATORY INFECTION Inactive Condition URI. Expect this illness to last from 7-10 days. Provide ample rest, fluids, motrin or tylenol for pain. Assess hydration status every 6 hours by checking urine output, tear production, moisture of mouth and skin turgor (discussed with parent). [facility] ASTHMA MILD PERSISTENT Active Condition Your child has asthma. Continue to follow your asthma action plan (AAP) and monitor peak flows as indicated. Inhaled steroids should be taken until you are directed to do so by your provider. If you are giving rescue medications (albuterol) more than e DoD NORMAL ROUTINE HISTORY AND PHYSICAL WELL-BABY ( - 2 Yr) Inactive Condition DoD IMPETIGO Inactive Condition DoD Allergies, Adverse Reactions, Alerts Combined list of allergies from Department of Defense and Veterans Affairs facilities. It does not include entries that were removed or entered in error. Substance Category Reaction Severity Reaction type Status Date Reported Comments Source NO OUTPUT FOR NCID [id number] Drug allergy (disorder) active 02/15/2007 [employer] [facility] ([facility]) Immunizations Combined list of available immunizations from the Department of Defense and Veterans Affairs facilities. Immunization Series Date Given Administered By Site Reaction Lot Number CVX Code Drug Tax Assessor Status Comments Source COVID-19, mRNA, LNP-S, PF, 30 mcg/0.3 mL dose, katie-sucrose 2021 [employer] (PFR) Not Given COVID-19, mRNA, LNP-S, PF, 30 mcg/0.3 mL dose, katie-sucr ose DoD influenza, injectable, quadrivalent, preservative free 2020 OFELIA, () Not Given influenza , injectabl e, quadrival ent, preservat edith free DoD Influenza, injectable, MDCK, preservative free, quadrivalent 2020 OFELIA, () Not Given Influenza , injectabl e, MDCK, preservat edith free, quadrival ent DoD meningococcal oligosacchari de (MCV4O) 2020 zzLef t Arm [id number] 136 GlaxoSmithKli ne complet ed meningoco ccal oligosacc haride (MCV4O) 02/19/21 Given Ambulat ory Pharmac y Human Papillomaviru s 9-valent vaccine 2020 zzLef t Arm [id number] 165 Merck & Company Inc complet ed Human Papilloma virus 9-valent vaccine 02/19/21 Given Ambulat ory Pharmac y meningococcal oligosacchari de (groups A, C, Y and W-135) diphtheria toxoid conjugate vaccine (MCV4O) 1 2020 Unknown, Provider [id number] 136 SmithKline (SKB) complet ed meningoco ccal oligosacc haride (groups A, C, Y and W-135) diphtheri a toxoid conjugate vaccine (MCV4O) DoD Human Papillomaviru s 9-valent vaccine 1 2020 Unknown, Provider [id number] 165 Merck (MSD) complet ed Human Papilloma virus 9-valent vaccine DoD influenza, injectable, quadrivalent, preservative free 2019 ALUL, () Not Given influenza , injectabl e, quadrival ent, preservat edith free DoD Influenza, injectable, MDCK, preservative free, quadrivalent 2018 ALUL, () Not Given Influenza , injectabl e, MDCK, preservat edith free, quadrival ent DoD Human Papillomaviru s 9-valent vaccine 2018 zzLef t Arm [id number] 165 Merck & Company Inc complet ed Human Papilloma virus 9-valent vaccine 04/13/19 Given Ambulat ory Pharmac y Human Papillomaviru s 9-valent vaccine 1 2018 Unknown, Provider [id number] 165 Merck (MSD) complet ed Human Papilloma virus 9-valent vaccine DoD Human Papillomaviru s 9-valent vaccine 2018 zzDaren Arm [id number] 165 Merck & Company Inc complet ed Human Papilloma virus 9-valent vaccine 07/27/18 Given Ambulat ory Pharmac y influenza, injectable, quadrivalent- pf 2018 zzLef t Arm [id number] 150 GlaxoSmithKli ne complet ed influenza , injectabl e, quadrival ent-pf 07/27/18 Given Ambulat ory Pharmac y Influenza, injectable, quadrivalent, preservative free 1 2018 Unknown, Provider [id number] 150 Smithine (SKB) complet ed Influenza , injectabl e, quadrival ent, preservat edith free DoD Human Papillomaviru s 9-valent vaccine 1 2018 Unknown, Provider [id number] 165 Merck (MSD) complet ed Human Papilloma virus 9-valent vaccine DoD influenza, injectable, quadrivalent- pf 2016 zzLef t Arm [id number] 150 GlaxoSmithKli ne complet ed influenza , injectabl e, quadrival ent-pf 05/28/17 Given Ambulat ory Pharmac y Influenza, injectable, quadrivalent, preservative free 1 2016 Unknown, Provider [id number] 150 SmithKline (SKB) complet ed Influenza , injectabl e, quadrival ent, preservat edith free DoD influenza, injectable, quadrivalent 2015 zzLef t Arm [id number] 158 [employer] complet ed influenza , injectabl e, quadrival ent 04/27/16 Given Ambulat ory Pharmac y influenza, injectable, quadrivalent, contains preservative 1 2015 Unknown, Provider [id number] 158 (IDB) complet ed influenza , injectabl e, quadrival ent, contains preservat edith DoD influenza, injectable, quadrivalent 2013 zzLef t Arm [id number] 158 [employer] complet ed influenza , injectabl e, quadrival ent 06/11/14 Given Ambulat ory Pharmac y tetanus, diphtheria, acellular pertu is [id number] tetanus, diphtheri a, acellular pertussis 06/11/14 Given Ambulat ory Pharmac y meningococcal A,C,Y,W-135 (MCV4P) 2013 zzLef t Arm [id number] 114 sanofi pasteur complet ed meningoco ccal A,C,Y,W-1 35 (MCV4P) 06/11/14 Given Ambulat ory Pharmac y meningococcal polysaccharid e (groups A, C, Y and W-135) diphtheria toxoid conjugate vaccine (MCV4P) 1 2013 Unknown, Provider [id number] 114 Sanofi Pasteur (PMC) complet ed meningoco ccal polysacch aride (groups A, C, Y and W-135) diphtheri a toxoid conjugate vaccine (MCV4P) DoD tetanus toxoid, reduced diphtheria toxoid, and acellular pertu is vaccine, adsorbed 1 2013 Unknown, Provider [id number] 115 [facility] (SKB) complet ed tetanus toxoid, reduced diphtheri a toxoid, and acellular pertussis vaccine, adsorbed DoD influenza, injectable, quadrivalent, contains preservative 1 2013 Unknown, Provider [id number] 158 (IDB) complet ed influenza , injectabl e, quadrival ent, contains preservat edith DoD influenza, seasonal, injectable-pf 2011 zzLef t Arm [id number] 140 sanofi pasteur complet ed influenza , seasonal, injectabl e-pf 04/28/12 Given Ambulat ory Pharmac y Influenza, seasonal, injectable, preservative free 3 2011 Unknown, Provider [id number] 140 Sanofi Pasteur ([facility]) complet ed Influenza , seasonal, injectabl e, preservat edith free DoD influenza, seasonal, injectable 2010 zzLef t Arm [id number] 141 sanofi pasteur complet ed influenza , seasonal, injectabl e 05/10/11 Given Ambulat ory Pharmac y Influenza, seasonal, injectable 2 2010 Unknown, Provider [id number] 141 Sanofi Pasteur ([facility]) complet ed Influenza , seasonal, injectabl e DoD influenza virus vaccine,split 2009 zzLef t Arm [id number] 15 sanofi pasteur complet ed influenza virus vaccine,s plit 07/21/10 Given Ambulat ory Pharmac y influenza virus vaccine, split virus (incl. purified surface antigen)-reti red CODE 1 2009 Unknown, Provider [id number] 15 Sanofi Pasteur ([facility]) complet ed influenza virus vaccine, split virus (incl. purified surface antigen)- retired CODE DoD Novel influenza-H1N 1-09,pf,injec table 2008 126 complet ed Novel influenza -[id number], pf,inject able 06/12/09 Given Ambulat ory Pharmac y Novel influenza-H1N 1-09, preservative- free, injectable 1 2008 Unknown, Provider 126 Transcribed (TRS) complet ed Novel influenza -[id number], preservat edith-free, injectabl e DoD DTaP-poliovir us vaccine, inactivated 2008 zzLef t Thigh [id number] 130 GlaxoSmithKli ne complet ed DTaP-crodelia ovirus vaccine, inactivat ed 01/14/09 Given Ambulat ory Pharmac y varicella virus vaccine 2008 zzLef t Thigh [id number] 21 Merck & Company Inc complet ed varicella virus vaccine 01/14/09 Given Ambulat ory Pharmac y measles/mumps /rubella virus vaccine 2008 zzRig Thigh [id number] 03 Merck & Company Inc complet ed measles/m umps/rube lla virus vaccine 01/14/09 Given Ambulat ory Pharmac y measles, mumps and rubella virus vaccine 2 2008 Unknown, Provider [id number] 03 Merck (MSD) complet ed measles, mumps and rubella virus vaccine DoD varicella virus vaccine 2 2008 Unknown, Provider [id number] 21 Merck (MSD) complet ed varicella virus vaccine DoD Diphtheria, tetanus toxoids and acellular pertu is vaccine, and poliovirus vaccine, inactivated 5 2008 Unknown, Provider [id number] [facility] Diphtheri a, tetanus toxoids and acellular pertussis vaccine, and polioviru s vaccine, inactivat ed DoD Hep A, pediatric, unspecified formul 2006 zRig Thigh [id number] [id number] 31 GlaxoSmithKli ne complet ed Hep A, pediatric , unspecifi ed formul 03/03/07 Given Ambulat ory Pharmac y hepatitis A vaccine, pediatric dosage, unspecified formulation 2 2006 Unknown, Provider [id number] 31 SmithKline (SKB) complet ed hepatitis A vaccine, pediatric dosage, unspecifi ed formulati on DoD Hep A, pediatric, unspecified formul 2005 zzLef t Thigh [id number] 31 GlaxoSmithKli ne complet ed Hep A, pediatric , unspecifi ed formul 04/15/06 Given Ambulat ory Pharmac y hepatitis A vaccine, pediatric dosage, unspecified formulation 1 2005 Unknown, Provider [id number] 31 [employer] (SKB) complet ed hepatitis A vaccine, pediatric dosage, unspecifi ed formulati on DoD pneumococcal 7-valent vaccine 2004 zzRig Thigh [id number] 100 [facility] pneumococ srini 7-valent vaccine 11/18/04 Given Ambulat ory Pharmac y DTaP 2004 zzL t Thigh [id number] 0BA 20 GlaxoSmithKli ne complet ed DTaP 11/18/04 Given Ambulat ory Pharmac y diphtheria, tetanus toxoids and acellular pertu is vaccine 4 2004 Unknown, Provider [id number] 0BA 20 [place] ([place]B) complet ed diphtheri a, tetanus toxoids and acellular pertussis vaccine DoD pneumococcal conjugate vaccine, 7 valent 4 2004 Unknown, Provider [id number] 100 [facility] (ALAN) complet ed pneumococ srini conjugate vaccine, 7 valent DoD haemophilus b conj (PRP-OMP) vaccine 2003 zzLef t Thigh [id number] 49 Merck & Company Inc complet ed haemophil us b conj (PRP-OMP) vaccine 04/29/04 Given Ambulat ory Pharmac y pneumococcal 7-valent vaccine 2003 zzRig ht Thigh [id number] 100 [facility] complet ed pneumococ srini 7-valent vaccine 04/29/04 Given Ambulat ory Pharmac y tuberculin purified protein derivative 2003 zzLef t Arm [id number] 96 sanofi pasteur complet ed Patient Tolerance : Negative Ambulat ory Pharmac y measles/mumps /rubella virus vaccine 2003 zzRig ht Thigh 0043P 03 Merck & Company Inc complet ed measles/m umps/rube lla virus vaccine 04/29/04 Given Ambulat ory Pharmac y varicella virus vaccine 2003 zzLef t Thigh [id number] 21 Merck & Company Inc complet ed varicella virus vaccine 04/29/04 Given Ambulat ory Pharmac y measles, mumps and rubella virus vaccine 1 2003 Unknown, Provider [id number] 03 Merck (MSD) complet ed measles, mumps and rubella virus vaccine DoD varicella virus vaccine 1 2003 Unknown, Provider [id number] 21 Merck (MSD) complet ed varicella virus vaccine DoD Haemophilus influenzae type b vaccine, PRP-OMP conjugate 3 2003 Unknown, Provider [id number] 49 Merck (MSD) complet ed Haemophil us influenza e type b vaccine, PRP-OMP conjugate DoD tuberculin skin test; purified protein derivative solution, intradermal 1 2003 Unknown, Provider [id number] 96 Sanofi Pasteur (PMC) complet ed tuberculi n skin test; purified protein derivativ e solution, intraderm al DoD pneumococcal conjugate vaccine, 7 valent 3 2003 Unknown, Provider [id number] 100 Nathalie (ALAN) complet ed pneumococ srini conjugate vaccine, 7 valent DoD pneumococcal 7-valent vaccine 2003 zzRig ht Thigh [id number] 100 [employer] complet ed pneumococ srini 7-valent vaccine 03 Given Ambulat ory Pharmac y DTaP-hepatiti s B and poliovirus vaccine 2003 zzLef t Thigh [id number] 110 GlaxoSmithKli ne complet ed DTaP-hepa titis B and polioviru s vaccine 03 Given Ambulat ory Pharmac y pneumococcal conjugate vaccine, 7 valent 2 2003 Unknown, Provider [id number] [facility] complet ed pneumococ srini conjugate vaccine, 7 valent DoD DTaP-hepatiti s B and poliovirus vaccine 3 2003 Unknown, Provider [id number] 110 [employer] (SKB) complet ed DTaP-hepa titis B and polioviru s vaccine DoD haemophilus b conj (PRP-OMP) vaccine [id number] 49 Merck & Company Inc complet ed haemophil us b conj (PRP-OMP) vaccine 03 Given Ambulat ory Pharmac y DTaP-hepatiti s B and poliovirus vaccine 2003 [facility] [id number] 110 GlaxoSmithKli ne complet ed DTaP-hepa titis B and polioviru s vaccine 03 Given Ambulat ory Pharmac y Haemophilus influenzae type b vaccine, PRP-OMP conjugate 2 2003 Unknown, Provider [id number] 49 Merck (MSD) complet ed Haemophil us influenza e type b vaccine, PRP-OMP conjugate DoD DTaP-hepatiti s B and poliovirus vaccine 2 2003 Unknown, Provider [id number] 110 [facility] (SKB) complet ed DTaP-hepa titis B and polioviru s vaccine DoD haemophilus b conj (PRP-OMP) vaccine 2002 zDaren Thigh [id number] 49 Merck & Company Inc complet ed haemophil us b conj (PRP-OMP) vaccine 03 Given Ambulat ory Pharmac y pneumococcal 7-valent vaccine 2002 zRig Thigh 494-384 100 [employer] complet ed pneumococ srini 7-valent vaccine 03 Given Ambulat ory Pharmac y DTaP-hepatiti s B and poliovirus vaccine 2002 [facility] [id number] 110 GlaxoSmithKli ne complet ed DTaP-hepa titis B and polioviru s vaccine 03 Given Ambulat ory Pharmac y Haemophilus influenzae type b vaccine, PRP-OMP conjugate 1 2002 Unknown, Provider [id number] 49 Merck (MSD) complet ed Haemophil us influenza e type b vaccine, PRP-OMP conjugate DoD pneumococcal conjugate vaccine, 7 valent 1 2002 Unknown, Provider [id number] 100 Nathalie (WAL) complet ed pneumococ srini conjugate vaccine, 7 valent DoD DTaP-hepatiti s B and poliovirus vaccine 1 2002 Unknown, Provider [id number] 110 [employer]line (SKB) complet ed DTaP-hepa titis B and polioviru s vaccine DoD hepatitis B pediatric/ado lescent 2002 Transcr ibed 08 Unknown complet ed hepatitis B pediatric /adolesce nt 03 Given Ambulat ory Pharmac y hepatitis B vaccine, pediatric or pediatric/ado lescent dosage 1 2002 Unknown, Provider Transcr ibed 08 Other (OTH) complet ed hepatitis B vaccine, pediatric or pediatric /adolesce nt dosage DoD Encounters Combined list of: 1) Encounters from Department of Veterans Affairs facilities going backup to the last 18 months, not all VA inpatient encounters are included; 2) Encounters from the Department of Defense facilities going backup to 280 months. Location Location Details Encounter Type Encounter Number Reason For Visit Attending Provider ADM Date DC Date Status Disposition Source [address] [place] [address] [facility] ([facility]Ped iatrics) OUTPATIENT [id number] FINGER INFECTI ON MALATHI CHOI 02/26 Released w/o Limitations [address] [place] [address] [facility] ([facility])(P ediatri cs) [address] [place] [address] [facility] ([facility]Ped iatrics) OUTPATIENT [id number] 1YR WELL BABY CHECK-U P TERESA MONTALVO 06/10 Released w/o Limitations [address] [place] [address] [facility] ([facility])(P ediatri cs) [address] [place] [address] [facility] ([facility]Ped iatrics) OUTPATIENT [id number] 1yo with hx asthma/ persist ant cough TERESA MONTALVO 07/13 Released w/o Limitations [address] [place] [address] [facility] ([facility])(P ediatri cs) [address] [place] [address] [facility] ([facility]Ped iatrics) OUTPATIENT [id number] cold, asthma exac TERESA MONTALVO 07/28 Released w/o Limitations [employer] ([facility])(P ediatri cs) [employer] ([facility]Ped iatrics) OUTPATIENT [id number] cold x 3 wks/hx asthma TERESA MONTALVO 01/31 Released w/o Limitations [employer] ([facility])(P ediatri cs) [employer] ([facility]Ped iatrics) OUTPATIENT [id number] pre-jose david ool TERESA MONTALVO 04/15 Released w/o Limitations [employer] ([facility])(P ediatri cs) [employer] ([facility]Ped iatrics) OUTPATIENT [id number] THROAT CULTURE TERESA MONTALVO 08/30 Released w/o Limitations [employer] ([facility])(P ediatri cs) [employer] ([facility]Ped iatrics) OUTPATIENT [id number] throat culture TERESA MONTALVO 10/03 Released w/o Limitations [employer] ([facility])(P ediatri cs) [employer] ([facility])(Fam eugene Practice Non-GME FHI1) OUTPATIENT [id number] [facility] phys. ph:[phone]*C CAROL DELACRUZ 03/03 Released w/o Limitations [employer] ([facility])(F amily Practic e Non-GME FHI1) [employer] ([facility]Ped iatrics) OUTPATIENT [id number] strep TERESA MONTALVO 09/23 Released w/o Limitations [employer] ([facility])(P ediatri cs) [employer] ([facility]Ped iatrics) OUTPATIENT [id number] Kinderg arten Physica l TERESA MONTALVO 01/14 Released w/o Limitations [employer] ([facility])(P ediatri cs) [employer] ([facility])(Opt ometry) OUTPATIENT [id number] Eye Exam for Sean BLISSLAURA Courtney 02/26 Released w/o Limitations [employer] ([facility])(O ptometr y) [employer] ([facility])(Ped iatrics) OUTPATIENT [id number] THROAT CULTURE RENÉDONG STEINBERG Toni 07/16 Released w/o Limitations [employer] ([facility])(P ediatri cs) [address] [place] [address] [facility] ([facility])(Ped iatrics) TELE CONSULT [id number] no acutes/ venuti REFUGIO GLYNN, ALEC 10/[address] [place] [address] [facility] ([facility])(P ediatri cs) [address] [place] [address] Group [facility] ([facility])(Ped iatrics) TELE CONSULT [id number] T con for ER F/U ZULEYMA Wilder 10/[address] [place] [address] [facility] ([facility])(P ediatri cs) [address] [place] [address] [facility]Ped iatrics) OUTPATIENT [id number] Asthma check up TERESA MONTALVO 10/23 Released w/o Limitations [facility])(P ediatri cs) [facility])(Ped iatrics) TELE CONSULT [id number] Behavio r issues REFUGIO GLYNN, ALEC 01/[address] [place] [address] Group [facility] ([facility])(P ediatri cs) [facility])(Ped iatrics) OUTPATIENT [id number] behavio r concern s TERESA MONTALVO 01/27 Released w/o Limitations [facility] ([facility])(P ediatri cs) [facility] ([facility])(Ped iatrics) TELE CONSULT [id number] referra yossi GLYNN, ALEC 01/[address] [place] [address] [employer] ([facility])(P ediatri cs) [facility] ([facility])(Ped iatrics) TELE CONSULT [id number] call back/ve alexandroi REFUGIO GLYNN, ALEC 01/[address] [place] [address] [employer] ([facility])(P ediatri cs) [facility] ([facility])(Ped iatrics) TELE CONSULT [id number] Med questio patito GLYNN, ALEC 02/10 Referred for Appointment [facility] ([facility])(P ediatri cs) [address] [place] [address] [facility] ([facility]Ped iatrics) TELE CONSULT [id number] F/U appt for behavio ral issues needed/ JOSE Lozada 03/05 Advice Assessment [address] [place] [address] [facility] ([facility])(P ediatri cs) [address] [place] [address] [facility] ([facility])(Ped iatrics) TELE CONSULT [id number] Referra TERRELL Card 03/12 Referred for Appointment [address] [place] [address] [facility] ([facility])(P ediatri cs) [address] [place] [address] Reji B [facility]Car diology ([place])) OUTPATIENT [id number] ekg TYRON GAMBINO I 03/13 Released w/o Limitations [address] [place] [address] [facility] PATTBrit ([facility])(C ardiolo gy ([facility])) [address] [place] [address] [facility])(Ped iatrics) TELE CONSULT [id number] Referra ALEC Mendoza 04/03 Referred for Appointment [address] [place] [address] Reji PATTBrit [facility])(P ediatri cs) [address] [place] [address] [facility])(Ped iatrics) TELE CONSULT [id number] T con for ER F/U fractur ed wrist Dr Montalvo ph [phone] ALEC HUYNH 03/[address] [place] [address] [facility])(P ediatri cs) [address] [place] [address] [facility])(Opt ometry) OUTPATIENT [id number] annaul eye exam CATY DOHERTY 05/10 Released w/o Limitations [address] [place] [address] [facility] ([facility])(O ptometr y) [address] [place] [address] Reji B [facility])(Sco tt Peds Team Kuldip) TELE CONSULT [id number] Notes Entered by: JAZMIN KING 17 Nov 2011 1502 ------- ------- ------- ------- -- Questio n about medicat ion Venuti cad tlt ALEC HUYNH 11/[address] [place] [address] Reji HAND [facility])(S cott Peds Team Kuldip) [address] [place] [address])(Sco tt Peds Team [place]ip) TELE CONSULT [id number] Notes Entered by: JOCELYN FOLEY 21 Apr 2012 0859 ------- ------- ------- ------- -- Asthma follow up-Deuce ti/694- 7799/ca CHAYO Funes 04/[address] [place] [address] Reji [facility])(S cott Peds Team Kuldip) [address] [place] [address])(Sco tt Peds Team [place]) OUTPATIENT [id number] f/u asthma for refill/ plan TERESA MONTALVO 05/04 Released w/o Limitations [address] [place] [address])(S cott Peds Team [place]) [address] [place] [address])(Sco tt Peds Team [employer]) TELE CONSULT [id number] Notes Entered by: Cezar OROZCO 23 Aug 2012 1157 ------- ------- ------- ------- -- Med refill/ Venuti/ [phone] ALEC HUYNH 08/[address] [place] [address])(S cott Peds Team [place]) [address] [place] [address])(Sco tt Peds Team [employer]) TELE CONSULT [id number] Notes Entered by: SHAYNE PENA 27 Nov 2012 0739 ------- ------- ------- ------- -- Appt for EKG JESSICA PENA 11/[address] [place] [address])(S cott Peds Team [place]) [address] [place] [address])(Sco tt Peds Team [employer]) TELE CONSULT [id number] Notes Entered by: MANUEL GOLDMAN 13 Dec 2012 0906 ------- ------- ------- ------- -- Micare directe d/Venut i/refer JESSICA Kemp 12/[address] [place] [address])(S cott Peds Team [place]uldip) [address] [place] [address])([facility] tt Peds Team Kuldip) OUTPATIENT [id number] EKG baselin e for psychia try TERESA MONTALVO 12/19 Released w/o Limitations [address] [place] [address])(S cott Peds Team [employer]) [address] [place] [address])([facility] tt Peds Team Kuldip) OUTPATIENT [id number] Notes Entered by: KELSIE TANNER 29 Dec 2012 0721 ------- ------- ------- ------- -- BP check MARIONDAREN 12/29 Released w/o Limitations [address] [place] [address])(S cott Peds Team [place]) [address] [place] [address])([facility] Peds Team Dean) OUTPATIENT [id number] Notes Entered by: Yossi MUNOZ 27 Mar 2013 0804 ------- ------- ------- ------- -- suture removal TAMIKA Guevara 03/27 Released w/o Limitations [address] [place] [address])(S cott Peds Team Dean) [address] [place] [address])([facility] tt Peds Team Dean) TELE CONSULT [id number] Notes Entered by: JANY CANDELARIA,SANA I 09 Aug 2013 1622 ------- ------- ------- ------- -- CHAYO Demarco 08/[address] [place] [address])(S [facility] Peds Team Dean) [address] [place] [address])([facility] tt Peds Team Kuldip) TELE CONSULT [id number] Notes Entered by: MANUEL GOLDMAN 21 Nov 2013 0757 ------- ------- ------- ------- -- Med refill/ Venuti/ REBECCA Cloud 11/[address] [place] [address])(S cott Peds Team [place]) [address] [place] [address])([facility]co tt Peds Team [place]) TELE CONSULT [id number] Notes Entered by: MANUEL GOLDMAN 09 Jan 2014 1002 ------- ------- ------- ------- -- Referra l/sleep study/V enuti/CATHY Berkowitz 01/[address] [place] [address])(S cott Peds Team [place]) [address] [place] [address])(Sco tt Peds Team Dean) OUTPATIENT [id number] wrist pain x 2 days, getting worse CHANDLER LIRA 02/12 Released w/o Limitations [address] [place] [address])(S cott Peds Team Dean) [address] [place] [address])(Sco tt Peds Team Kuldip) TELE CONSULT [id number] Notes Entered by: Mariaa OROZCO 13 Feb 2014 0902 ------- ------- ------- ------- -- X-ray results Venuti 133.131 .[id number] CATHY CASTILLO 02/[address] [place] [address])(S cott Peds Team [place]) [address] [place] [address])(Sco tt Peds Team [place]) TELE CONSULT [id number] Notes Entered by: VIOLETTE SAN 16 Apr 2014 1406 ------- ------- ------- ------- -- Hospita l admissi on - Venuti - CATHY CASTILLO 04/[address] [place] [address])(S cott Peds Team [place]ip) [address] [place] [address] [facility])(Sco tt Peds Team Kuldip) TELE CONSULT [id number] Notes Entered by: GENOVEVA COOMBS 23 Apr 2014 0804 ------- ------- ------- ------- -- Network results - Pulmona ry/Slee p Medicin e 014 TERESA MONTALVO 04/[address] [place] [address] Reji [facility])(S cott Peds Team Kuldip) [address] [place] [address])(Sco tt Peds Team [place]ip) OUTPATIENT [id number] BSA PhysicTERESA Canales 11/08 Released w/o Limitations [address] [place] [address] Reji [facility])(S cott Peds Team Kuldip) [address] [place] [address])(Sco tt [facility] Fam Res Tm Gold) OUTPATIENT [id number] bakari sy - [id number] DILIP HALL 10/12 Released w/o Limitations [address] [place] [address] Reji [facility])(S cott [facility] Fam Res Tm Gold) [address] [place] [address] Reji [facility])(Sco tt [facility] Fam Res Tm Gold) TELE CONSULT [id number] Notes Entered by: WANDA LUU 28 Jan 2016 1002 ------- ------- ------- ------- -- STAT Referra l Request / F/U after ER Visit / Gigi / - sgSHANDRA Loera 01/27 Referred for Appointment [address] [place] [address] Reji [facility])(S cott [facility] Fam Res Tm Gold) [address] [place] [address] Reji [facility])(Sco tt [facility] Fam Res Tm Green) TELE CONSULT [id number] Notes Entered by: RYAN WEAVER 04 Feb 2016 0929 ------- ------- ------- ------- -- Network Results ORTHOPE DICS 02/03/16 EMILI KENNEY 02/[address] [place] [address] Reji HAND ([facility]S cott [facility] Fam Res Tm Green) [address] [place] [address] Reji HAND ([facility])(Sco tt [facility] FAM[facility] Tm Blue) OUTPATIENT [id number] ankle pain-hu rts to walk [phone] JORDAN ROMO 04/07 Released w/o Limitations [address] [place] [address] Reji HAND ([facility])(S cott [facility] Tm Blue) [address] [place] [address] Reji HAND ([facility])(Sco tt [facility] Fam Res Tm Gold) OUTPATIENT [id number] school Physica l EMILI LUU 08/11 Released w/o Limitations [facility] Reji HAND ([facility])(S cott [facility] Fam Res Tm Gold) [address] [place] [address] Reji HAND ([facility])(Opt ometry) OUTPATIENT [id number] exam BENJY BOB 09/17 Released w/o Limitations [address] [place] [address] Reji HAND ([facility])(O ptometr y) [address] [place] [address] Reji HAND ([facility])(Sco tt [facility] Tm Blue) OUTPATIENT [id number] sore on leg after attempt ing to remove a wart DANIEL ARREAGA 01/20 Released w/o Limitations [facility] Reji HAND ([facility])(S cott [facility] Tm Blue) [address] [place] [address] Reji HAND ([facility])(Sco tt [facility] Tm Blue) OUTPATIENT [id number] Sports physica l [id number] / [id number] ANSHU CRUZ 10/05 Released w/o Limitations [facility] Reji HAND ([facility])(S cott [facility] Tm Blue) [address] [place] [address] Reji HAND ([facility])(Sco tt [facility] Tm Blue) OUTPATIENT [id number] fever for several days FRAN CHERY 11/04 Released w/o Limitations [address] [place] [address] Reji BELTREB ([facility])(S cott [facility] Tm Blue) [address] [place] [address] Reji BELTREB ([facility])(Sco tt [facility] Tm Blue) OUTPATIENT [id number] Pain in hip FRAN CHERY 12/15 Released w/o Limitations [address] [place] [address] Reji BELTREB ([facility])(S cott [facility] Tm Blue) [address] [place] [address])(Sco tt [facility] Tm Blue) TELE CONSULT [id number] Notes Entered by: GLENNY GODWIN 16 Mar 2018 0851 ------- ------- ------- ------- -- Med Claudia /Tato murillo/Ed 18.691. 9126/cl SHANDRA Thompson 03/16 Referred for Appointment [address] [place] [address])([facility] [address] [place] [address])(Sco tt [facility] Blue) OUTPATIENT [id number] bridge refill on psych meds, provide r is gone VICTOR HUGO FANG 03/21 Released w/o Limitations [address] [place] [address])([facility] [address] [place] [address])([facility] OUTPATIENT [id number] 3 Sport JOHNATHAN Alejandro 04/12 Released w/o Limitations [address] [place] [address])([facility] [address] [place] [address])(Sco tt [facility] [employer] Res Tm Green) TELE CONSULT [id number] Notes Entered by: Mariaa COSTELLO 13 Apr 2019 1851 ------- ------- ------- ------- -- Lab results CRESENCIO COSTELLO 04/13 Released to [facility] [address] [place] [address])(S [facility] Res Tm Green) Procedures Combined list of: 1) Procedures from Department of Veterans Affairs facilities going back up to thelast 18 months, not all VA non-surgical procedures are included; 2) All procedures from the Department of Defense facilities. Procedure Procedure Type Code Date Perfomer Comments Sourc e No data available for this section [facility] Pharmacy NONINVASIVE EAR OR PULSE OXIMETRY FOR OXYGEN SATURATION; SINGLE DETERMINATION 005 [facility] NONINVASIVE EAR OR PULSE OXIMETRY FOR OXYGEN SATURATION; SINGLE DETERMINATION 005 [facility] NONINVASIVE EAR OR PULSE OXIMETRY FOR OXYGEN SATURATION; SINGLE DETERMINATION [facility] NONINVASIVE EAR OR PULSE OXIMETRY FOR OXYGEN SATURATION; SINGLE DETERMINATION [facility] NONINVASIVE EAR OR PULSE OXIMETRY FOR OXYGEN SATURATION; SINGLE DETERMINATION [facility] NONINVASIVE EAR OR PULSE OXIMETRY FOR OXYGEN SATURATION; SINGLE DETERMINATION [facility] PNEUMOCOCCAL CONJUGATE VACCINE, 7 VALENT, FOR INTRAMUSCULAR USE [facility] EDUCATIONAL SUPPLIES, SUCH BOOKS, TAPES, AND PAMPHLETS, FOR THE PATIENT'S EDUCATION AT COST TO PHYSICIAN OR OTHER QUALIFIED HEALTH MOTORCYCLE DESIGNER [facility] DESTRUCTION (EG, LASER SURGERY, ELECTROSURGERY, CRYOSURGERY, CHEMOSURGERY, SURGICAL CURETTEMENT), OF BENIGN LESIONS OTHER THAN SKIN TAGS OR CUTANEOUS VASCULAR PROLIFERATIVE LESIONS; UP TO 14 LESIONS [facility] DETERMINATION OF REFRACTIVE STATE DoD TELE ASSESS & MGT SRV PROV QUAL NONPHYS HLTH CARE PRO TO EST PAT,PARENT,GUARD NOT ORIG REL ASSESS & MGT SRV PROV W/IN PREV 7 DAYS NOR LEAD ASSESS & MGT SRV/PX W/IN NXT 24 HR/SOON APT;5-10 MIN MED DIS 016 [facility] CASE MANAGEMENT, EACH 15 MINUTES 014 [facility] COORDINATED CARE FEE, MAINTENANCE RATE DoD TELE ASSESS & MGT SRV PROV QUAL NONPHYS HLTH CARE PRO TO EST PAT,PARENT,GUARD NOT ORIG REL ASSESS & MGT SRV PROV W/IN PREV 7 DAYS NOR LEAD ASSESS & MGT SRV/PX W/IN NXT 24H/SOON APT; 11-20 MIN MED DIS 014 DoD TELE ASSESS & MGT SRV PROV QUAL NONPHYS HLTH CARE PRO TO EST PAT,PARENT,GUARD NOT ORIG REL ASSESS & MGT SRV PROV W/IN PREV 7 DAYS NOR LEAD ASSESS & MGT SRV/PX W/IN NXT 24H/SOON APT; 21-30 MIN MED DIS 014 DoD TELE ASSESS & MGT SRV PROV QUAL NONPHYS HLTH CARE PRO TO EST PAT,PARENT,GUARD NOT ORIG REL ASSESS & MGT SRV PROV W/IN PREV 7 DAYS NOR LEAD ASSESS & MGT SRV/PX W/IN NXT 24 HR/SOON APT;5-10 MIN MED DIS 014 DoD TELE ASSESS & MGT SRV PROV QUAL NONPHYS HLTH CARE PRO TO EST PAT,PARENT,GUARD NOT ORIG REL ASSESS & MGT SRV PROV W/IN PREV 7 DAYS NOR LEAD ASSESS & MGT SRV/PX W/IN NXT 24 HR/SOON APT;5-10 MIN MED DIS 013 DoD TELE ASSESS & MGT SRV PROV QUAL NONPHYS HLTH CARE PRO TO EST PAT,PARENT,GUARD NOT ORIG REL ASSESS & MGT SRV PROV W/IN PREV 7 DAYS NOR LEAD ASSESS & MGT SRV/PX W/IN NXT 24 HR/SOON APT;5-10 MIN MED DIS 013 DoD TELE ASSESS & MGT SRV PROV QUAL NONPHYS HLTH CARE PRO TO EST PAT,PARENT,GUARD NOT ORIG REL ASSESS & MGT SRV PROV W/IN PREV 7 DAYS NOR LEAD ASSESS & MGT SRV/PX W/IN NXT 24 HR/SOON APT;5-10 MIN MED DIS 013 DoD VITAL CAPACITY, TOTAL (SEPARATE PROCEDURE) 012 DoD TELE ASSESS & MGT SRV PROV QUAL NONPHYS HLTH CARE PRO TO EST PAT,PARENT,GUARD NOT ORIG REL ASSESS & MGT SRV PROV W/IN PREV 7 DAYS NOR LEAD ASSESS & MGT SRV/PX W/IN NXT 24 HR/SOON APT;5-10 MIN MED DIS 012 DoD SCANNING COMPUTERIZED OPHTHALMIC DIAGNOSTIC IMAGING, POSTERIOR SEGMENT, WITH INTERPRETATION AND REPORT, UNILATERAL OR BILATERAL; OPTIC NERVE 011 DoD ELECTROCARDIOGRAM, ROUTINE ECG WITH AT LEAST 12 LEADS; WITH INTERPRETATION AND REPORT 010 DoD INFECTIOUS AGENT ANTIGEN DETECTION BY IMMUNOASSAY WITH DIRECT OPTICAL (IE, VISUAL) OBSERVATION; STREPTOCOCCUS, GROUP A 009 DoD DETERMINATION OF REFRACTIVE STATE 009 DoD VARICELLA VIRUS VACCINE (YANIRA), LIVE, FOR SUBCUTANEOUS USE 009 DoD INFECTIOUS AGENT ANTIGEN DETECTION BY IMMUNOASSAY WITH DIRECT OPTICAL (IE, VISUAL) OBSERVATION; STREPTOCOCCUS, GROUP A 009 DoD HEPATITIS A VACCINE (HEPA), PEDIATRIC/ADOLESCEN T DOSAGE-2 DOSE SCHEDULE, FOR INTRAMUSCULAR USE 007 DoD INFECTIOUS AGENT ANTIGEN DETECTION BY IMMUNOASSAY WITH DIRECT OPTICAL (IE, VISUAL) OBSERVATION; STREPTOCOCCUS, GROUP A 007 DoD INFECTIOUS AGENT ANTIGEN DETECTION BY IMMUNOASSAY WITH DIRECT OPTICAL (IE, VISUAL) OBSERVATION; STREPTOCOCCUS, GROUP A 007 DoD IMMUNIZATION ADMINISTRATION YOUNGER 8 YEARS, AGE (INCL PERCUTANEOUS, I/D, SUBCUTANEOUS,/INTRA MUSCULAR INJECTS) WHEN THE PHYSICIAN COUNSELS THE PATIENT/; 1ST INJECT (1/COMBO VACCINE/TOXOID),/DA Y 006 [facility] Destruction Of Benign Lesion By Any Method Destruction Of Benign Lesion By Any Method [id number] DANIEL ARREAGA [facility] Determination Of Refractive State Determination Of Refractive State [id number] BENJY BOB Ophthalmological New Patient Start Comprehensive Care Ophthalmological New Patient Start Comprehensive Care [phone] BENJY BOB Scanning Computerized Ophthalmic Diagnostic Imaging Optic Nerve Scanning Computerized Ophthalmic Diagnostic Imaging Optic Nerve [phone] BENJY BOB Non-Physician Phone Call To Patient/Provider Brief (5-10min) Non-Physician Phone Call To Patient/Provider Brief (5-10min) [phone] SHANDRA GAMEZ [facility] Case Management, each 15 minutes 014 JESSICA PENA Coordinated care fee, maintenance rate 014 JESSICA PENA Case Management, each 15 minutes 014 JESSICA PENA Non-Physician Phone Call To Pt/Provider Intermed (11-20 min) Non-Physician Phone Call To Pt/Provider Intermed (11-20 min) [phone] CATHY CASTILLO [facility] Non-Physician Phone Call To Pt/Provider Lengthy (21-30 min) Non-Physician Phone Call To Pt/Provider Lengthy (21-30 min) [phone] REBECCA ROSA [facility] Non-Physician Phone Call To Patient/Provider Brief (5-10min) Non-Physician Phone Call To Patient/Provider Brief (5-10min) [phone] CHAYO YAN [facility] Non-Physician Phone Call To Patient/Provider Brief (5-10min) Non-Physician Phone Call To Patient/Provider Brief (5-10min) [phone] JESSICA PENA [facility] Non-Physician Phone Call To Patient/Provider Brief (5-10min) Non-Physician Phone Call To Patient/Provider Brief (5-10min) [phone] JESSICA PENA [facility] Non-Physician Phone Call To Patient/Provider Brief (5-10min) Non-Physician Phone Call To Patient/Provider Brief (5-10min) [phone] ALEC EDWARDS Pulmonary Function Tests Peak Expiratory Flow Pulmonary Function Tests Peak Expiratory Flow [phone] ALESSANDRO PICKETT Created by entry in Vitals Module [facility] Non-Physician Phone Call To Patient/Provider Brief (5-10min) Non-Physician Phone Call To Patient/Provider Brief (5-10min) [phone] ALEC EDWARDS [facility] Scanning Computerized Ophthalmic Diagnostic Imaging Optic Nerve Scanning Computerized Ophthalmic Diagnostic Imaging Optic Nerve [phone] CATY DOHERTY Determination Of Refractive State Determination Of Refractive State [id number] [id number] CATY DOHERTY Ophthalmological Prior Patient Start Comprehensive Care Ophthalmological Prior Patient Start Comprehensive Care [phone] CATY DOHERTY ECG 12-Lead With Interpretation And Report ECG 12-Lead With Interpretation And Report [id number] NENITA GUZMAN [facility] Rapid Antigen Identification Streptococcus Group A Beta Hemolytic Rapid Antigen Identification Streptococcus Group A Beta Hemolytic [id number] DONG HOLT [facility] Determination Of Refractive State Determination Of Refractive State [phone] LAURA BLISS Ophthalmological New Patient Start Comprehensive Care Ophthalmological New Patient Start Comprehensive Care [phone] LAURA BLISS Rapid Antigen Identification Streptococcus Group A Beta Hemolytic Rapid Antigen Identification Streptococcus Group A Beta Hemolytic [phone] TERESA MONTALVO [facility] Rapid Antigen Identification Streptococcus Group A Beta Hemolytic Rapid Antigen Identification Streptococcus Group A Beta Hemolytic [phone] JAE LIRIANO Rapid Antigen Identification Streptococcus Group A Beta Hemolytic Rapid Antigen Identification Streptococcus Group A Beta Hemolytic [phone] MELITON EDWARDS [facility] Hep A Vac Ped/Adol Dosage (Intramusc Use) 2 Dose Schedule Hep A Vac Ped/Adol Dosage (Intramusc Use) 2 Dose Schedule [id number] TERESA MONTALVO [facility] Immunization Administration Under Age 8, One Vaccine Immunization Administration Under Age 8, One Vaccine [phone] TERESA MONTALVO [facility] Social History Combined list of available smoking, tobacco, and other social history from Department of Defense and Veterans Affairs facilities. Social History Type Response Date Comment [facility] e This section is an empty social history section. [facility] Assessment and Plan Combined list of future care activities from Department of Defense and Veterans Affairs facilities (e.g., assessment and plan notes, appointments, orders, and referrals). Additional future care activities may be listed in the Plan of Care section. Result Assessment and Plan Date Source Assessment and Plan No data available for this section 11/19/2024 Ambulatory Pharmacy Functional Status Combined list of recent functional and cognitive assessments recorded at Department of Defense and Veterans Affairs (VA).VA Functional [place] Measurement (FIM) Scale: 1 = Total Assistance (Subject = 0% +), 2 = Maximal Assistance (Subject = 25% +), 3 = Moderate Assistance (Subject = 50% +), 4 = Minimal Assistance (Subject = 75% +), 5 = Supervision, 6 = Modified [place] (Device), 7 = Complete [place] (Timely, Safely). Assessment Date/Time Source Assessment Type Assessment Skill Assessment Score Assessment Details No data available for this section
[2024-11-19 21:00] LABS: Toxigenic C. Diff POSITIVE (NEGATIVE)
== END 2024-11-19 17:03 | disposition home or self-care (01) ==
PROVIDERS: PCP Nurse Practitioner Family; Visit Provider Nurse Practitioner Family
DX: K52.9 Noninfective gastroenteritis and colitis, unspecified (principal); R19.5 Other fecal abnormalities; R10.32 Left lower quadrant pain
CPT/HCPCS: 83993; 87045; 87177; 87209; 87269; 87427; 87449; 87493

== ENCOUNTER 2025-04-02 00:18 | Day surgery (SDC) | payer OTHER, SELFPAY ==
[2025-03-20 12:14] VITALS: BMI 28.0
--- OUTSIDE RECORDS SUMMARY | 2025-04-02 00:20 | XMS_ITS ---
Author Organization Unknown ENCOUNTERS Encounter Performer Location Date Diagnosis Diagnosis Status Outpatient Shanae Goodrich [facility] [address] [place] [address] [id number] PETER Emergency [facility] [address] [place] [address] [id number] PETER Pre Admit [facility] [address] [place] [address] [id number] [facility] [address] [place] [address] [id number] PETER *Note: Encounters from your own facility or health system may be excluded. Allergies, Adverse Reactions, Alerts Allergen Type Severity Identification Date Medications Name Date Quantity Days Supplied GPI Number
--- OUTSIDE RECORDS SUMMARY | 2025-04-02 00:20 | XMS_ITS | Clinical Summary ---
Author Organization [facility] Address [address] [place] [address] Care Team Providers Care Warehouse Shipping Associate Name Role Phone Unavailable Primary Care Provider [...] COVID-19 Vaccine (1 - 2023-2 5 season) 2025 Meningococcal Vaccine Aged Out No adalid dariana [...]
--- OUTSIDE RECORDS SUMMARY | 2025-04-02 00:20 | XMS_ITS | Clinical Summary ---
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
--- OUTSIDE RECORDS SUMMARY | 2025-04-02 00:20 | XMS_ITS | Clinical Summary ---
Author Organization [facility] Address [address] [place] [address] Care Team Providers Care Sweatband Perforator Name Role Phone Zac Montalvo MD Primary Care Provider Unavailab le Source Comments [facility],non-owned Affiliates and Associated Physician Practices is amultiple site organization consisting of ambulatory clinics and hospital sitesin [place], [place] and [place]. This disclosure is being madepursuant to the Care Everywhere program and may not contain all information available regarding this patient. 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 Gender Identity Not on file Sexual Orientation Not on file Last Filed Vital Signs Vital Sign Reading Time Taken Comments Blood Pressure - - Pulse - - Temperature - - Respiratory Rate - - Oxygen Saturation - - Inhaled Oxygen Concentration - - Weight 50.5 kg (111 lb 5.3 oz) 02/03/2016 1:21 P M CDT Height 158.1 cm (5' 2.24) 02/03/2016 1:21 PM CD T Body Mass [...] of 3 - 19+ 3-dose series) 2022 DEPRESSION SCREENING 07/25/2024 COVID-19 VACCINE (1 - 2023-2 5 season) 2025 INFLUENZA VACCINE (#1) 2025 ZOSTER VACCINE (1 of 2) 2053 HIB VACCINE Aged Out No longer eligi ble based on patient's age to complete this topic MENINGOCOCCAL GROUPS A/C/Y/W VACCINE Aged Out No longer eligible b ased on patient's age to complete this topic PNEUMOCOCCAL VACCINE Aged Out No long er eligible based on patient's age to complete this topic Insurance Care Teams Sweatband Perforator Relationship Specialty Start Date End Date Zac Montalvo MD PCP - General 03/22/11
[2025-04-02 09:02] VITALS: BP 130/88; PULSE 97; RESP 16; TEMP 36.6; O2SAT 100; BMI 26.7
[2025-04-02] MEDS: LACTATED RINGERS 1,000 ML 150 ML IV CONT (09:18)
--- NOTE | 2025-04-02 09:19 | P.PNAN_ITS ---
Anes - Initial Pre Proc Eval Procedure: Operation Date: 04/02/25 10:30 Proposed Procedures p Diagnostic Colonoscopy - Jean Russell MD Date/Time: 04/02/25 09:19 Surgeon: Jaen Russell MD Pre Op Diagnosis: lower abdominal pain, abnormal CT scan Patient Data Age: 19 Gender: M Height: 1.75 m Weight: 82.2 kg Last Vital Signs Temp 36.6 C 04/02/25 09:02 Pulse 97 04/02/25 09:02 Resp 16 04/02/25 09:02 BP 130/88 04/02/25 09:02 Pulse Ox 100 04/02/25 09:02 O2 Del Method Room Air 04/02/25 09:02 Allergies Allergy/AdvReac Type Severity Reaction Status Date / Time No Known Allergies Allergy Verified 04/02/25 09:06 Home Medications ?Medication ?Instructions ?Recorded ?Confirmed ?Type No Home Medications 03/20/25 03/20/25 H istory Patient hx anesthesia problems: none Family hx anesthesia problems: none Results Review: All pre-operative results and documents have been reviewed as part of the pre- operative evaluation. [facility] Past Medical History Medical History C. difficile diarrhea Loose stools Medial epicondylitis of right elbow Left shoulder pain BMI 25.0-25.9,adult Overweight (BMI 25.0-29.9) Left lateral knee pain Left knee pain Constipation Abdominal pain Acute conjunctivitis of right eye BMI 26.0-26.9,adult Mild acne Mild intermittent asthma in adult without complication Attention deficit hyperactivity disorder (ADHD), combined type, moderate ADHD Asthma Family History Family History Father Neuropathy Father GERD (gastroesophageal reflux disease) Grandparent Hyperlipidemia Neuropathy Grandparent Hyperlipidemia Arthritis Grandparent Hyperlipidemia Hypertension Diabetes mellitus Neuropathy Grandparent Diabetes mellitus Hyperlipidemia Sibling Asthma ADD (attention deficit disorder) Social History Social History Smoking status: Never smoker Alcohol intake: never Substance use: never Substance use type: does not use Living arrangements: with family Spiritual care concerns: No Anes - Eval Final PreProcedure Day of Procedure 04/02/25 09:19 Patient weight: normal Heart: regular rate and rhythm Lungs: clear to auscultation Airway: Mallampati scale class II Neurological: alert and oriented Last oral intake: >/= 8 hours ASA classification: II Emergent: no Anesthetic plan: proceed Anesthesia type and monitoring: general GIVS and standard monitoring Results Review: All pre-operative results and documents have been reviewed as part of the pre- operative evaluation. Informed Consent: The patient's anesthetic plan and its attendant risks and benefits were discussed with the patient/family/POA. Questions were solicited and answers provided to the satisfaction of the patient/family/POA.
--- NOTE | 2025-04-02 09:29 | P.HP_ITS ---
History of Present Illness History of Present Illness Consent: Risks, benefits, and alternatives have been discussed and questions answered. Patient agrees to proceed with procedure. Chief complaint: lower abdominal pain, abnormal CT scan Narrative: Wil Lynn is a 19 year old male here for first colonoscopy, had colitis few months ago Review of Systems Review of Systems: All systems reviewed & are unremarkable except as noted in HPI and below PMFSH Past Medical History Medical History (Updated 04/02/25 @ 09:29 by Jean Russell MD) History of colitis C. difficile diarrhea Loose stools Medial epicondylitis of right elbow Left shoulder pain BMI 25.0-25.9,adult Overweight (BMI 25.0-29.9) Left lateral knee pain Left knee pain Constipation Abdominal pain Acute conjunctivitis of right eye BMI 26.0-26.9,adult Mild acne Mild intermittent asthma in adult without complication Attention deficit hyperactivity disorder (ADHD), combined type, moderate ADHD Asthma Family History Family History Father Neuropathy Father GERD (gastroesophageal reflux disease) Grandparent Hyperlipidemia Neuropathy Grandparent Hyperlipidemia Arthritis Grandparent Hyperlipidemia Hypertension Diabetes mellitus Neuropathy Grandparent Diabetes mellitus Hyperlipidemia Sibling Asthma ADD (attention deficit disorder) Social History Social History Smoking status: Never smoker Alcohol intake: never Substance use: never Substance use type: does not use Living arrangements: with family Spiritual care concerns: No Meds Home Medications and Allergies Home Medications ?Medication ?Instructions ?Recorded ?Confirmed ?Type No Home Medications 03/20/25 03/20/25 H istory Allergies Allergy/AdvReac Type Severity Reaction Status Date / Time No Known Allergies Allergy Verified 04/02/25 09:06 Vital Signs Vital Signs - 24 hr 04/02/25 09:02 Temperature 97.8 F Pulse Rate 97 Respiratory Rate 16 Blood Pressure 130/88 Pulse Oximetry 100 Oxygen Delivery Room Air Exam Const: General: comfortable and no acute distress HENMT: Face/Nose/Sinus: Normal nares present Eyes: General: appearance normal, both eyes and all related structures Neck: Neck: no JVD Resp: Auscultation: clear to auscultation bilaterally Cardio: Rate: regular rate Rhythm: regular rhythm GI: Inspection: non-distended GI Palp: Yes Soft to palpation Skin: General skin exam: normal color Neuro: Speech: normal speech Extrem: General: normal to inspection Psych: Mental Status: mental status grossly normal Assessment and Plan Assessment and plan (1) History of colitis: Code(s): Z87.19 - Personal history of other diseases of the digestive system Status: Acute Assessment and Plan: colonoscopy
--- NOTE | 2025-04-02 09:41 | S_PTH ---
PATIENT: Wil Lynn LOC: [facility] Lozoya#:[id number] AGE/SX: 19/M ROOM: RE04/02/[address]: Jean Russell MD : 2005 BED: DIS: 04/02/2025 SPEC #: [id number] RECD: 04/02/25 10:06 STATUS: EUGENE REKay #: [id number] ROSA: 04/02/25 09:[address]: Jean Russell DEPT: [facility] Surgical RECD BY: Elan Dunham ENTERED: 04/02/25 10:06 SP TYPE: Surgical OTHR DR: Ana Sen APRN Tissues: A - Colon Biopsy Procedures: Hematoxylin and Eosin Stain Gross and Microscopic Level 4
[2025-04-02 09:42] VITALS: BP 90/53; PULSE 77; RESP 17; O2SAT 97
[2025-04-02 09:52] VITALS: BP 97/56; PULSE 65; RESP 16; O2SAT 96
[2025-04-02 10:02] VITALS: BP 103/66; PULSE 7; RESP 14; O2SAT 100
== END 2025-04-02 10:18 | disposition home or self-care (01) ==
PROVIDERS: PCP Nurse Practitioner Family; Referring Provider Nurse Practitioner Family; Visit Provider Internal Medicine Gastroenterology
PROC: 0DJD8ZZ Inspection of Lower Intestinal Tract, Via Natural or Artificial Opening Endoscopic (ICD-10-PCS; CPT 45378; principal; 2025-04-02 10:30)
DX: Z09 Encounter for follow-up examination after completed treatment for conditions other than malignant neoplasm (principal); J45.909 Unspecified asthma, uncomplicated; F90.2 Attention-deficit hyperactivity disorder, combined type; Z87.19 Personal history of other diseases of the digestive system
CPT/HCPCS: 45380; 88305; J2003; J2704; J7120

== ENCOUNTER 2025-04-26 09:02 | Emergency (ER) | payer OTHER, SELFPAY ==
[2025-04-26 09:11] VITALS: BP 128/88; PULSE 111; RESP 18; TEMP 36.6; O2SAT 99
--- OUTSIDE RECORDS SUMMARY | 2025-04-26 09:11 | XMS_ITS | Clinical Summary ---
Author Organization [facility] Address [address] [place] [address] Care Team Providers Care Plant Director Name Role Phone Zac Montalvo MD Primary Care Provider Unavailab le Source Comments [facility],non-owned Affiliates and Associated Physician Practices is amultiple site organization consisting of ambulatory clinics and hospital sitesin [place], [place], [place] and [place]. This disclosure is being madepursuant to the Care Everywhere program and may not contain all information available regarding this patient. 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 Gender Identity Not on file Sexual [...] patient's age to complete this topic Insurance [facility] SELF PAY NO INSURANCE Member Subscriber Plan / Payer (Ef fective for All Dates) Name:Wil Hernández Juanjose Member ID:Not on file Relation to Subscriber:Not on file Name:WIL HERNÁNDEZ Subscriber ID:Not on file (Home) Address: [address] [place] [address] Payer ID:Not on file Group ID:Not on file Type:Self Pay Address: [place], [place] Member Subscriber Plan / Payer (Ef fective for All Dates) Name:Wil Hernández Juanjose Relation to Subscriber:Self Name:HOMER HERNÁNDEZNando Sow Payer ID:[id number] (NAIC) Group ID:Not on file Type:/[employer] Address: [facility] [address] [place] [address] Care Teams Plant Director Relationship Specialty Start Date End Date Zac Montalvo MD PCP - General 03/22/11
--- OUTSIDE RECORDS SUMMARY | 2025-04-26 09:11 | XMS_ITS ---
Author Organization Unknown ENCOUNTERS Encounter Performer Location Date Diagnosis Diagnosis Status Outpatient Jean Russell [facility] [address] [place] [address] [id number] [facility] [address] [place] [address] [id number] PET[facility] Emergency [facility] [address] [place] [address] [id number] PETER Pre Admit [facility] [address] [place] [address] [id number] Emergency [facility] [address] [place] [address] [id number] PETER *Note: Encounters from your own facility or health system may be excluded. Allergies, Adverse Reactions, Alerts Allergen Type Severity Identification Date Medications Name Date Quantity Days Supplied GPI Number
--- OUTSIDE RECORDS SUMMARY | 2025-04-26 09:11 | XMS_ITS | Clinical Summary ---
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
[2025-04-26 09:29] LABS: EDCOVIDSCREEN Negative (Negative); EDINFLUASCREEN Negative (Negative); EDINFLUBSCREEN Negative (Negative)
--- NOTE | 2025-04-26 09:37 | ED.URI ---
HPI - URI/Sore Throat General Chief Complaint: Upper Respiratory Infection Stated Complaint: Fever Time Seen by Provider: 04/26/25 09:15 Source: patient and RN notes reviewed Mode of arrival: ambulatory Limitations: no limitations History of Present Illness HPI Narrative: 19-year-old male presents Express Care complaining of fevers, headaches, congestion since yesterday. Patient denies any other upper respiratory symptoms, cough, chest pain, difficulty breathing, nausea, vomiting, diarrhea, or any other symptoms. Patient took Tylenol help with symptoms. Patient denies any significant past medical history. Related Data Home Medications ?Medication ?Instructions ?Recorded ?Confirmed ?Last Taken ?Type No Home Medications 03/20/25 04/26/25 Unknown History Allergies Allergy/AdvReac Type Severity Reaction Status Date / Time No Known Allergies Allergy Verified 04/26/25 09:14 Review of Systems Review of Systems: CONSTITUTIONAL: Positive for fevers. Negative for body aches, Chills, or sweats. EYES: Denies visual changes, redness, or discharge. ENT: Denies rhinorrhea, sore throat, or otalgia. Positive for congestion. CARDIOVASCULAR: Denies chest pain, palpitations, or edema. RESPIRATORY: Denies cough or dyspnea. GASTROINTESTINAL: Denies abdominal pain, nausea, vomiting, or diarrhea. GENITOURINARY: Denies dysuria or hematuria. SKIN: Denies rash or itching. MUSCULOSKELETAL: Denies back pain, joint pain, or myalgia. NEUROLOGIC: Positive for headaches. Negative for numbness, or weakness. PSYCHIATRIC: Denies anxiety or depression. All other systems reviewed are negative, except as documented in HPI. [facility] Past Medical History Medical History History of colitis C. difficile diarrhea Loose stools Medial epicondylitis of right elbow Left shoulder pain BMI 25.0-25.9,adult Overweight (BMI 25.0-29.9) Left lateral knee pain Left knee pain Constipation Abdominal pain Acute conjunctivitis of right eye BMI 26.0-26.9,adult Mild acne Mild intermittent asthma in adult without complication Attention deficit hyperactivity disorder (ADHD), combined type, moderate ADHD Asthma Family History Family History Father Neuropathy Father GERD (gastroesophageal reflux disease) Grandparent Hyperlipidemia Neuropathy Grandparent Hyperlipidemia Arthritis Grandparent Hyperlipidemia Hypertension Diabetes mellitus Neuropathy Grandparent Diabetes mellitus Hyperlipidemia Sibling Asthma ADD (attention deficit disorder) Social History Social History Smoking status: Never smoker Alcohol intake: never Substance use: never Substance use type: does not use Living arrangements: with family Spiritual care concerns: No Comments At the time of my signature, I reviewed and agree with the nursing past medical, surgical, social, and family history. There is no relevant family history pertinent to the patient complaint. Exam Narrative: GENERAL: This is a well-nourished, well-developed adult, in no apparent distress. They are non ill-appearing, nontoxic appearing. HEAD: normocephalic, atraumatic. EYES: Sclera clear/white. Conjunctiva normal. Vision is grossly intact. Extraocular movements intact EARS: External ears normal, auditory canals clear and without drainage, TMs normal without perforation. Hearing grossly intact. NOSE: External nose normal with no obvious nasal discharge, nasal turbinates erythemic, no swelling, no rhinorrhea. THROAT: Mucous membranes moist, posterior pharynx with postnasal drip, without erythema or swelling. Uvula midline. NECK: Neck supple, non-tender without lymphadenopathy, masses or thyromegaly. CARDIOVASCULAR: Regular rate and rhythm without murmurs, gallops, or rubs. RESPIRATORY: Clear to auscultation. Breath sounds equal bilaterally. No wheezes, rales, or rhonchi. SKIN: warm, Dry, intact with no suspicious lesions or rash, good texture and turgor. NEURO: awake, alert, and oriented to person, place and time. There were no obvious focal neurologic abnormalities. EXTREMITIES: No joint tenderness, effusion, or edema noted. BACK: Nontender without deformity. No CVA tenderness. Course Course Emergency Course: Portions of this record may have been created with voice recognition software Level of Care: Express Care Visit Vital Signs Vital signs: Vital Signs Temperature 97.8 F 04/26/25 09:11 Pulse Rate 111 H 04/26/25 09:11 Respiratory Rate 18 04/26/25 09:11 Blood Pressure 128/88 04/26/25 09:11 Pulse Oximetry 99 04/26/25 09:11 Oxygen Delivery Room Air 04/26/25 09:11 Temperature 97.8 F 04/26/25 09:11 Pulse Rate 111 H 04/26/25 09:11 Respiratory Rate 18 04/26/25 09:11 Blood Pressure 128/88 04/26/25 09:11 Pulse Oximetry 99 04/26/25 09:11 Oxygen Delivery Room Air 04/26/25 09:11 Reviewed MDM - URI/Sore Throat MDM Narrative Medical decision making narrative: Rapid COVID and flu were negative. Symptoms Is likely viral etiology. Recommend supportive therapy. Discussed physical exam findings. Advised supportive measures and signs/symptoms to go to the ER. Pt is appropriate for outpt treatment and f/u. Differential Diagnosis Differential diagnosis: Likely upper respiratory infection, sinusitis, viral infection and influenza Lab Data Attestation: I reviewed the patient's lab results. Labs: Lab Results 04/26/25 Range/Units 09:27 POC Influenza A Ag Negative (Negative) POC Influenza B Ag Negative (Negative) POC SARS CoV-2 Ag Negative (Negative) Critical Care Time Critical Care Time Critical Care Time: No Discharge Plan Discharge Clinical Impression: Upper respiratory infection Qualifiers: URI type: unspecified viral URI Qualified Code(s): J06.9 - Acute upper respiratory infection, unspecified Patient Disposition: Home Condition: Stable Instructions: Antibiotic Form, Upper Respiratory Infection (ED) Additional Instructions: Your rapid COVID and flu were negative today. It Is likely a viral illness. Viral illness may last between 7-14 days; antibiotics do not cure viral illness and are NOT recommended at this time. You may take Claritin or Zyrtec as needed for congestion. Follow instructions on the bottle. Cough syrup may cause drowsiness; avoid driving or take it at night time. Also, recommend symptomatic treatment includes: rest, fluids, and increase humidity of the air at home. You may take ibuprofen 600 mg to 800 mg every 6-8 hours. Do not exceed more than 800 mg of ibuprofen per dose. Do not exceed more than 3200 mg ibuprofen in a day. You may take up to 1000 mg Tylenol every 6-8 hours. Do not exceed 1000 mg per dose, do exceed more than 4000 mg of Tylenol in a day. Please schedule a follow-up visit with your personal physician for further evaluation and treatment within 3-5days. Please go to the ER if you develops chest pain, difficulty breathing, vomiting, worsening symptoms, or any serious concerns. Patient Language: Telugu Prescriptions: No Action No Home Medications Follow-up/Referrals: Ede Leahy MD [Primary Care Provider, Family Practice] Stand Alone Forms: Work/School Release IP Time of Disposition: 09:34
== END 2025-04-26 09:38 | disposition home or self-care (01) ==
PROVIDERS: PCP Family Medicine
DX: J06.9 Acute upper respiratory infection, unspecified (principal); Z20.822 Contact with and (suspected) exposure to COVID-19; J45.909 Unspecified asthma, uncomplicated
CPT/HCPCS: 87426; 87804; 99213; G0463